=== PATIENT | female | born 1960 | race Caucasian/White ===

== ENCOUNTER 2019-11-11 07:08 | Outpatient (CLI) | payer MEDICARE, SELFPAY ==
--- NOTE | ~2019-11-11 | CT_ITS ---
EXAMINATION: CT chest abdomen pelvis w con EXAM DATE: 11/11/2019 07:42 INDICATION: Left-sided lung cancer. Cough. Weight loss. TECHNIQUE: Spiral CT of the chest, abdomen and pelvis was performed following intravenous injection o f 100 mL Omnipaque 350. There is suboptimal enhancement. Axial, coronal and sagittal images were revi ewed. Coronal maximum intensity pixel images of chest reviewed. The dose-length product (DLP) for t his examination was 1198.30 mGy-cm. The exposure was tailored according to patient size (auto mA exp osure control), and iterative reconstruction (ASIR) was used as additional dose reduction technique. Correlation is made to PET/CT 04/15/2019. FINDINGS: CHEST: Left lower lobe previously biopsied cancer has increased in size, measuring 2.5 x 1.8 cm toda y versus 2.0 x 1.3 cm on prior study. Innumerable faint tree-in-bud or centrilobular distribution alia undglass nodular opacities, could be hypersensitivity pneumonitis or respiratory bronchiolitis inters titial lung disease, given that these are chronic, evidence of this on prior study. Large calcified r ight lower lobe granuloma. There are no pleural or pericardial effusions. Scattered regions of left basilar endobronchial debris. There is no mediastinal, hilar or axillary lymphadenopathy. There i s no pneumothorax. Heart normal in size. There is moderate coronary arterial calcification, arter ial sclerosis. ABDOMEN PELVIS: The liver, spleen, adrenal glands and pancreas are unremarkable. There are cholecyst ectomy clips. There is some contrast within the calyces, no hydronephrosis. The uterus is unremarka ble. The bladder is [id number]. There is no retroperitoneal or pelvic lymphadenopathy. There is moderate scattered arteriosclerotic disease. The appendix is normal. There is small sliding gastroesophageal hiatal hernia. There is expected am ount of colonic stool. No free intraperitoneal gas. There are no osteoblastic or osteolytic lesio ns identified. IMPRESSION: 1. Increase in size of left lower lobe biopsy-proven cancer. 2. Diffuse vague tiny chronic groundglass opacities, appearance most consistent with hypersensitivit y pneumonitis or RB-ILD. 3. No evidence of thoracic or abdominal metastatic disease. 4. Small hiatal hernia. Reviewed, dictated and finalized at location A. [employer] IMPRESSION: 1. Increase in size of left lower lobe biopsy-proven cancer. 2. Diffuse vague tiny chronic groundglass opacities, appearance most consisten t with hypersensitivity pneumonitis or RB-ILD. 3. No evidence of thoracic or abdominal metastatic disease. 4. Small hiatal hernia.
== END 2019-11-11 07:09 | disposition home or self-care (01) ==
LOC: ANHIMG 07:10
PROVIDERS: PCP Family Medicine; Visit Provider Internal Medicine Hematology & Oncology
DX: C34.32 Malignant neoplasm of lower lobe, left bronchus or lung (principal); K44.9 Diaphragmatic hernia without obstruction or gangrene; R91.8 Other nonspecific abnormal finding of lung field
CPT/HCPCS: 71260; 74177; Q9967

== ENCOUNTER 2019-11-27 07:12 | Outpatient (CLI) | payer MEDICARE, SELFPAY ==
--- NOTE | 2019-11-27 | ECHO_ITS ---
Patient Info Name: Nanda Fajardo Age: 59 years : 1960 Gender: Female Ht: 65 in Wt: 184 lbs BSA: 1.98 m2 HR: 54 bpm BP: 107 / 73 mmHg Heart Rhythm: Sinus Rhythm Exam Date: 11/27/2019 8:13 AM Exam Location: [facility] Patient Status: Outpatient Admit Date: 11/27/2019 Staff Ordering Physician: PHYSICIAN NOT ON STAFF, NONSTAFF Combatant Diver Qualified: Alma Navarrete RDCS Attending Provider: PHYSICIAN NOT ON STAFF, NONSTAFF Exam Type: CA echo doppler color flow Study Info Indications - CANCER LOWER LOBE LUNG Complete two-dimensional, color flow and Doppler transthoracic echocardiogram is performed. Summary 1. Left ventricular systolic function is normal, estimated at 65-70%. 2. There is mildly increased left ventricular wall thickness. 3. The left ventricular diastolic function is grade I diastolic dysfunction. 4. There is mild aortic valve stenosis with a peak velocity of 240 cm/s, mean gradient of 10 mmHg, and aortic valve area of 1.6 cm2. 5. Heavy calcification involving the right coronary cusp of the aortic valve. 6. There is trace aortic valve regurgitation. 7. There is mild pulmonic regurgitation. Left Ventricle Left ventricular chamber dimension is normal. Left ventricular systolic function is normal, estimated at 65-70%. There is mildly increased left ventricular wall thickness. Left ventricular septal wall motion is normal. The left ventricular diastolic function is grade I diastolic dysfunction. Right Ventricle Right ventricular chamber dimension is normal. Right ventricular systolic function is normal. Left Atria Left atrial chamber dimension is normal. Right Atria Right atrial chamber dimension is normal. Atrial Septum Intact interatrial septum visualized by color flow imaging. Aortic Valve The aortic valve is trileaflet. There is no aortic valve sclerosis. There is mild aortic valve stenosis with a peak velocity of 240 cm/s, mean gradient of 10 mmHg, and aortic valve area of 1.6 cm2. There is trace aortic valve regurgitation. Heavy calcification involving the right coronary cusp of the aortic valve. Pulmonic Valve The pulmonic valve is not well visualized. There is no pulmonic valve stenosis. There is mild pulmonic regurgitation. Mitral Valve The mitral valve has thickened leaflets. There is no mitral valve stenosis. There is no mitral valve regurgitation. Tricuspid Valve The tricuspid valve leaflets are normal. There is no significant tricuspid valve stenosis. There is no tricuspid valve regurgitation. Pericardium/Pleural The pericardium appears normal. There is no pericardial effusion. Inferior Vena Cava Normal inferior vena cava with >50% collapse upon inspiration consistent with normal right atrial pressure, 5 mmHg. Aorta The aortic root size at the sinus of Valsalva is normal. The prox ascending aorta size is normal. Left Ventricular Outflow Tract Name Value Normal LVOT 2D LVOT Diameter 2.1 cm LVOT Doppler LVOT Peak Gradient 3 mmHg LVOT Mean Gradient 2 mmHg LVOT VTI
--- NOTE | 2019-11-28 11:25 | WPDPFTINT ---
PFT Interpretation PFT Interpretation: This PFT met all criteria for ATS standards and reproducibility FEV/FVC pre bronchodilator 68% of predicted FEV1 62% of predicted or 1.47 liters FVC 68% of predicted or 2.17 liters No bronchodilator challenge was given TLC 98% of predicted or 5.03 liters RV 141% RV/TLC 54% DLCO 55% of predicted or 12.7 liters when adjusted for alveolar volume but not adjusted for hemoglobin Flow volume loops did not appear to show expiratory coving Impression: Moderate airflow obstruction with air trapping and moderately reduced diffusion capacity. This pattern may fit COPD. Clinical correlation is advised.
== END 2019-11-27 07:13 | disposition home or self-care (01) ==
PROVIDERS: PCP Family Medicine
DX: C34.30 Malignant neoplasm of lower lobe, unspecified bronchus or lung (principal); R94.2 Abnormal results of pulmonary function studies; I51.7 Cardiomegaly; I35.0 Nonrheumatic aortic (valve) stenosis; I70.0 Atherosclerosis of aorta; I37.1 Nonrheumatic pulmonary valve insufficiency
CPT/HCPCS: 93306; 94375; 94726; 94729

== ENCOUNTER 2019-12-31 07:46 | Outpatient (CLI) | payer MEDICARE, SELFPAY ==
--- NOTE | ~2019-12-31 | XR_ITS ---
EXAMINATION: XR chest 2V EXAM DATE: 12/31/2019 08:16 INDICATION: Malignant neoplasm of lower lobe. Left-sided lung cancer. TECHNIQUE: Portable AP frontal chest x-ray was obtained. Comparison is made to prior examination from 05/14/2019. FINDINGS: There is small left pleural effusion. Can't identify previously seen left midlung zone mass like opacity, correlate for any interval partial pneumonectomy or other treatment. Right middle lobe calcified granuloma. Cardiomediastinal silhouette is normal. There is no pneumothorax suspected. Ther e are no pleural effusions. There are mild bony degenerative changes. IMPRESSION: 1. Small left pleural effusion. Reviewed, dictated and finalized at location B.
== END 2019-12-31 07:47 | disposition home or self-care (01) ==
PROVIDERS: PCP Family Medicine; Visit Provider Thoracic Surgery (Cardiothoracic Vascular Surgery)
DX: C34.90 Malignant neoplasm of unspecified part of unspecified bronchus or lung (principal); J90 Pleural effusion, not elsewhere classified
CPT/HCPCS: 71046

== ENCOUNTER 2020-01-10 12:47 | Inpatient (IN) | payer MEDICARE, SELFPAY ==
[2020-01-10] VITALS (8 sets, daily range): BP systolic 112–175; BP diastolic 64–107; PULSE 60–107; RESP 18–22; TEMP 36.4–37; O2SAT 93–99; BMI 35.0
--- NOTE | ~2020-01-10 | CT_ITS ---
EXAMINATION: CT abdomen pelvis wo con EXAM DATE: 01/10/2020 13:33 INDICATION: Right flank pain. TECHNIQUE: Spiral CT of the abdomen and pelvis was performed without contrast. Axial, coronal and sag ittal images were reviewed. The dose-length product (DLP) for this examination was 422.72 mGy-cm. T he exposure was tailored according to patient size (auto mA exposure control), and iterative reconstr uction (ASIR) was used as additional dose reduction technique. There is no prior study for compariso n. FINDINGS: There is a 10 mm stone in the right ureteropelvic junction with moderate obstructive nephro tejas. Additional punctate right superior calyceal stone. There is left inferior calyceal stone measu ring 1.8 cm. The uterus is anteverted and morphologically normal. The bladder is collapsed at time of imaging limiting evaluation. The liver, spleen, adrenal glands and pancreas are unremarkable. Th ere are cholecystectomy clips. There is no retroperitoneal or pelvic lymphadenopathy. There is mod erate scattered arteriosclerotic disease. The appendix is normal. The stomach and small bowel are unremarkable. There is expected amount of c olonic stool. No free intraperitoneal gas. There is small left pleural effusion with adjacent sub segmental atelectasis. There is right lower lobe granuloma. There are no osteoblastic or osteolytic lesions identified. IMPRESSION: 1. Right UPJ 1 cm stone, moderate obstructive nephropathy. 2. Bilateral nephrolithiasis. 3. Small left pleural effusion, adjacent subsegmental atelectasis. Reviewed, dictated and finalized at location A.
--- NOTE | ~2020-01-10 | XR_ITS ---
EXAMINATION: XR retrograde pyelo w/stent RT DATE: 01/11/2020 08:57 INDICATION: Obstructing right renal stone with hydronephrosis. TECHNIQUE: 31 fluoroscopic images of the abdomen and pelvis were obtained during procedure performed by Dr. Cordova. Radiologist was not present for the imaging or procedure. The amount of fluoroscopy jen e used during this procedure was 0.4 minutes. COMPARISON: CT dated 01/10/2020 FINDINGS: Escalator Constructor images demonstrate the obstructing proximal right ureteral stone projecting lateral to the L4 v ertebral body. Cholecystectomy clips in right upper quadrant. Subsequent images demonstrate retrograd e injection of contrast into the right ureter which appears to displace the stone with contrast exten ding to the dilated right renal pelvis. Final images demonstrate placement of a right internal ureter al stent with loops formed over the right renal pelvis and bladder. There is residual contrast within the right renal collecting system with improvement in the right hydronephrosis. IMPRESSION: 1. Right ureteral stone, which appears displaced on the final images, unclear whether reflux into the contrast opacified right renal collecting system were extracted. Correlate with procedure note. 2. Right internal ureteral stent placement in expected position with improvement in right hydronephro sis. Reviewed, dictated and finalized at location A. IMPRESSION: 1. Right ureteral stone, which appears displaced on the final images, unclear w hether reflux into the contrast opacified right renal collecting system were ex tracted. Correlate with procedure note. 2. Right internal ureteral stent placement in expected position with improvemen t in right hydronephrosis.
--- NOTE | ~2020-01-10 | XR_ITS ---
EXAMINATION: XR abdomen/kub 1V DATE: 01/12/2020 09:38 INDICATION: Right renal stone TECHNIQUE: A supine view of the abdomen on 2 radiographs was obtained. COMPARISON: CT dated 01/10/2020 FINDINGS: Again seen is a cluster of at least 4 stones in a lower pole calyx of the left kidney, the largest me asuring [address] There is a new right internal ureteral stent with loops formed over the ex pected location of the bladder and right renal pelvis. The previously obstructing 10 mm stone at the proximal right ureter has moved, now projecting over the lower pole of the right kidney. No stones se en along the course of ureters. No dilated gas-filled loops of bowel to suggest obstruction. Cholecys tectomy clips in the right upper quadrant. Multiple splenic calcifications consistent with old granul omatous disease. Small left pleural effusion. Mild bibasilar atelectasis. IMPRESSION: 1. Bilateral nephrolithiasis with repositioning post retrograde Polygram and right internal ureteral stent placement of a 10 mm stone previously obstructing the proximal right ureter which is now positi oned in the lower pole of the right kidney post retrograde pyelogram and right internal ureteral sten t placement. 2. Small left pleural effusion. Reviewed, dictated and finalized at location A. IMPRESSION: 1. Bilateral nephrolithiasis with repositioning post retrograde Polygram and ri ght internal ureteral stent placement of a 10 mm stone previously obstructing t he proximal right ureter which is now positioned in the lower pole of the right kidney post retrograde pyelogram and right internal ureteral stent placement. 2. Small left pleural effusion.
--- NOTE | ~2020-01-10 | XR_ITS ---
EXAMINATION: XR abdomen/kub 1V EXAM DATE: 01/10/2020 13:39 INDICATION: Right UPJ stone. TECHNIQUE: Frontal projection(s) of the abdomen for interpretation. Correlation is made to CT same da te. FINDINGS: Right UPJ stone identified, indicated. Left nephrolithiasis also identified. There are cho lecystectomy clips. There is a nonobstructive bowel gas pattern. There are bony degenerative changes. IMPRESSION: Right UPJ stone identified. Left nephrolithiasis. Reviewed, dictated and finalized at location A.
[2020-01-10 13:06] LABS: Basophils Absolute Auto 0.1 K/mm3 (0.0-0.1); Basophils Percent Auto 0.6 % (0.2-1.2); Eosinophils Absolute Auto 0.3 K/mm3 (0-0.3); Eosinophils Percent Auto 3.8 % (0-4.4); Hematocrit 41.1 % (37.0-47.0); Immature Granulocyte Absolute 0.03 K/mm3 (0.00-0.031); Immature Granulocyte Percent A 0.3 % (0-0.5); Lymphocytes Absolute Auto 1.66 K/mm3 (0.9-3.2); Lymphocytes Percent Auto 18.7 % (18.3-44.2); Mean Corpuscular HGB Conc 31.6 g/dl (32-36); Mean Corpuscular Hemoglobin 28.3 pg (26-34); Mean Corpuscular Volume 89.5 fl (80-100); Mean Platelet Volume 9.8 fl (7.4-10.4); Monocytes Absolute Auto 0.6 K/mm3 (0.1-0.6); Monocytes Percent Auto 6.7 % (2.6-8.5); Neutrophils Absolute Auto 6.2 K/mm3 (1.3-6.7); Neutrophils Percent Auto 69.9 % (45.5-73.1); Platelet Count Result 210 k/mm3 (150-375); Red Blood Count 4.59 M/mm3 (4.2-5.4); Red Cell Distribution Width 13.7 % (11.5-14.5); White Blood Count 8.9 K/mm3 (4.5-10.0)
--- NOTE | 2020-01-10 13:13 | ED.ABDPAIN ---
HPI - Abdominal Pain General Chief Complaint: Abdominal Pain <BRODERICK Paez Last Filed: 01/10/20 14:41> Stated Complaint: abd/back pain <BRODERICK Paez Last Filed: 01/10/20 14:41> Time Seen by Provider: 01/10/20 12:55 <BRODERICK Paez Last Filed: 01/10/20 14:41> Source: patient <BRODERICK Paez Last Filed: 01/10/20 14:41> Mode of arrival: ambulatory <BRODERICK Paez Last Filed: 01/10/20 14:41> Limitations: no limitations <BRODERICK Paez Last Filed: 01/10/20 14:41> History of Present Illness HPI narrative: Patient is a 59-year-old female who presents to emergency department with acute onset of right flank pain from the right CVA region into the abdomen presented this morning with associated nausea and vomiting patient denies similar occurrence notes sharp stabbing pain nothing is made it better or worse denies any diarrhea urinary symptoms. Patient has not taken anything for her symptoms and presents in acute pain distress <BRODERICK Paez Last Filed: 01/10/20 14:41> Related Data Home Medications: Home Medications Medication Instructions Recorded Confirmed aspirin [Aspir-81] 81 mg PO DAILY 01/10/20 bupropion HCl 75 mg PO BID 01/10/20 calcium polycarbophil [FiberCon] 1,250 mg PO BID 01/10/20 ergocalciferol (vitamin D2) 1,250 mcg PO WEEKLY 01/10/20 [Vitamin D2] flaxseed oil 1,000 mg PO DAILY 01/10/20 fluoxetine 20 mg PO DAILY 01/10/20 gabapentin 300 mg PO BID 01/10/20 hydrocodone-acetaminophen 1 tablet PO Q8H 01/10/20 lisinopril 5 mg PO DAILY 01/10/20 loratadine 10 mg PO DAILY 01/10/20 metformin 500 mg PO DAILY 01/10/20 erzauirldsfk-yaz-wmdy-FA-vit K 1 tablet PO DAILY 01/10/20 [Adults Multivitamin] potassium chloride 20 meq PO DAILY 01/10/20 pravastatin 40 mg PO DAILY 01/10/20 ropinirole [Requip XL] 2 mg PO DAILY 01/10/20 umeclidinium-vilanterol [Anoro 1 inh INHALATION DAILY 01/10/20 Ellipta] <Richard Carlton PA-C - Last Filed: 01/10/20 14:41> Allergies/Adverse Reactions: Allergies Allergy/AdvReac Type Severity Reaction Status Date / Time nickel Allergy Unknown Rash Verified 01/10/20 12:53 <Richard Carlton PA-C - Last Filed: 01/10/20 14:41> Review of Systems Review of Systems: All systems reviewed & are unremarkable except as noted in HPI and below <Richard Carlton PA-C - Last Filed: 01/10/20 14:41> [facility] Past Medical History Medical History: Medical History (Updated 01/10/20 @ 14:57 by Grace Estes PA-C) COPD (chronic obstructive pulmonary disease) Depression with anxiety GERD (gastroesophageal reflux disease) Hyperlipidemia Hypertension Obstructive sleep apnea Intolerant to CPAP. Perforated gastric ulcer With intra-abdominal abscess in January 2018, status post and crest ectomy with Billroth-I gastroduodenostomy. Primary adenocarcinoma of lower lobe of left lung Restless leg syndrome Type 2 diabetes mellitus with peripheral neuropathy Vitamin D deficiency <Richard Carlton PA-C - Last Filed: 01/10/20 14:41> Surgical History Surgical History: Surgical History (Updated 01/10/20 @ 14:51 by Grace Estes PA-C) History of Billroth I operation Ghassan gastrectomy with Billroth 1 gastroduodenostomy for large perforated ulcer in the posterior greater curvature on February 19, 2018, per Dr. Jose Ramon June with subsequent closure of abdominal wound dehiscence February 27, 2018. History of laparoscopic cholecystectomy History of lobectomy of lung History of tonsillectomy History of tubal ligation <Richard Carlton PA-C - Last Filed: 01/10/20 14:41> Family History Family History: Family History Mother Patient's mother is , Onset Age: 71 Father Patient's father is , Onset Age: 52 Other Diabetes mellitus Family history of arthritis Hypertensio
[2020-01-10] MEDS: FAMOTIDINE 20 MG/2 ML VIAL IV PUSH (13:14)
[2020-01-10] MEDS: ONDANSETRON INJ 4 MG/2 ML VIAL IV PUSH (13:14)
[2020-01-10] MEDS: SODIUM CHLORIDE 0.9% IV 1,000 ML 999 ML IV CONT (13:15)
[2020-01-10 13:18] LABS: Alanine Aminotransferase 14 U/L (4-35); Albumin Level 4.2 g/dL (3.5-5.1); Alkaline Phosphatase 101 U/L (38-126); Aspartate Amino Transferase 25 U/L (14-36); Bilirubin,Total 0.4 mg/dL (0.2-1.3); Blood Urea Nitrogen 13 mg/dL (7-17); Calcium 9.5 mg/dL (8.4-10.2); Carbon Dioxide 34 mmol/L (22-30); Chloride 100 mmol/L (98-107); Estimated Glomerular Filt Rate > 60; Glucose 163 mg/dL (65-105); Lipase 43 U/L (23-300); Potassium 4.2 mmol/L (3.4-5.0); Sodium 137 mmol/L (137-145)
[2020-01-10] MEDS: MORPHINE SULFATE 4 MG/ML INJ IV PUSH (13:24)
[2020-01-10 13:57] LABS: Add Urine Microscopic? YES; Appearance Urine Cloudy (Clear); Bacteria Urine Trace /hpf; Bilirubin Urine Negative (Negative); Blood Urine 2+ (Negative); Color Urine Yellow (Yellow); Glucose Urine UA Negative (Negative); Ketones Urine Negative (Negative); Leukocyte Esterase Ur 3+ LEU/UL (Negative); Mucus Urine Rare /lpf; Nitrate Urine Positive (Negative); Protein Urine 2+ mg/dL (Negative); RBC Urine 51-75 /hpf (0-2); Specific Grav Ur 1.015 (1.001-1.035); Squamous Epithelial Cell Urine Few /hpf (Few); WBC Urine >75 /hpf
--- NOTE | 2020-01-10 14:31 | PC.NURSE ---
Spoke with [facility] patients contact finger assembler at [phone] and notified that patient will be admitted to hospital. Also notified [place] patient requesting her to picking tech her purse/wallet.
--- NOTE | 2020-01-10 15:21 | PC.NURSE ---
This patient, Nanda Fajardo, was admitted to Medical Room 257-01. Patient/family oriented to hospital policies and general routines including ID bracelet, bed and alarms, visiting hours, pain management, procedures, bathroom and other care routines, personal items, smoking policy, room service/diet, and visiting hours. Valuables list has been completed. Information on how to activate the Rapid Response Team has been discussed. Patient/Family are encouraged to report perceived risks to care and to ask questions if they do not understand what they are told or what they should do.
[2020-01-10] MEDS: LACTATED RINGERS 1,000 ML 125 ML IV CONT (15:37)
[2020-01-10 16:14] LABS: Glucose Point of Care 128 (65-105)
--- NOTE | 2020-01-10 16:30 | PM.IMHP ---
H&P: HPI History of Present Illness Chief complaint: Abdominal pain. Narrative: Nanda Fajardo is a 59-year-old female with adenocarcinoma of the lung status post partial left lower lobectomy, type 2 diabetes mellitus with peripheral neuropathy, hypertension, COPD and GERD who presented to the emergency department earlier this afternoon from home for evaluation of abdominal pain. She notes a sudden onset of right flank pain this morning, radiating to the right mid back and right middle and lower quadrants. She describes colicky pain, intermittently sharp and stabbing in nature, without significant alleviating or aggravating factors. Associated symptoms include nausea and vomiting. She has never had similar symptoms in the past. CT of the abdomen and pelvis demonstrated bilateral nephrolithiasis as well as a 1 centimeter right UPJ stone with moderate obstructive nephropathy. With further questioning, she denies knowledge of prior kidney stones. She also denies hematuria, dysuria, urinary hesitancy, and urgency. She is frequently cold, and that is unchanged. No fever or sweats. Review of Systems Review of Systems: Narrative: Twelve systems were reviewed with pertinent positives and negatives as per HPI. She has lost about 35 pounds since being diagnosed with lung cancer last year. Since that time, she feels as though she is cold a majority of the time in fact complains of being quite cold at the time my evaluation despite being in a comfortable room temperature. No fever or sweats. She has an occasional cough, which is chronic and unchanged. No recent travel. Denies sick contacts. No exposure to those positive for COVID-19. She has not had nausea or vomiting since admission to the hospital. She believes her diabetes is well controlled. She has mild peripheral neuropathy. No retinopathy or nephropathy. Denies blurry vision, polydipsia, and polyuria. Except as documented, all other systems were reviewed and are negative. [facility] Past Medical History Medical History (Updated 01/10/20 @ 20:42 by Grace Estes PA-C) COPD (chronic obstructive pulmonary disease) Depression with anxiety Diastolic dysfunction Echocardiogram November 27, 2019 showed normal left ventricular systolic size and function with an ejection fraction of 65 to 70%, mild increase in left ventricular wall thickness, left ventricular diastolic dysfunction grade 1, and mild aortic valve stenosis with a valve area of 1.6 centimeters squared. GERD (gastroesophageal reflux disease) Hyperlipidemia Hypertension Obstructive sleep apnea Intolerant to CPAP. Perforated gastric ulcer With intra-abdominal abscess in January 2018, status post hemigastrectomy with Billroth-I gastroduodenostomy. Primary adenocarcinoma of lower lobe of left lung Status partial left lower lobectomy November 2019 at [facility] in [place]. She is to start chemotherapy per Dr. Rodriguez in the near future. Restless leg syndrome Type 2 diabetes mellitus with peripheral neuropathy Hemoglobin A1c was 6.1% in January 2019. Vitamin D deficiency Surgical History Surgical History (Updated 01/10/20 @ 20:39 by Grace Estes PA-C) History of Billroth I operation Ghassan gastrectomy with Billroth 1 gastroduodenostomy for large perforated ulcer in the posterior greater curvature on February 19, 2018, per Dr. Jose Ramon June with subsequent closure of abdominal wound dehiscence February 27, 2018. History of laparoscopic cholecystectomy History of tonsillectomy History of tubal ligation Status post partial lobectomy of lung Robotic assisted left lower lobe, done at [facility] in [place] in November 2019. Family History Family History Mother Patient's mother is , Onset Age: 71 History of blood clots Congestive heart failure Diabetes mellitus Hypertension Father Patient's father is , Onset Age: 52 Acute myocardial infa
[2020-01-10 18:46] LABS: Glucose Point of Care 147 (65-105)
[2020-01-10] MEDS: FLUOXETINE HCL 20 MG CAP PO (21:50)
[2020-01-10] MEDS: PRAVASTATIN SODIUM 20 MG TABLET 40 MG PO (21:50)
[2020-01-10] MEDS: GABAPENTIN 300 MG CAPSULE 600 MG PO (21:51)
[2020-01-10] MEDS: POTASSIUM CHLORIDE 20 MEQ TABLET.ER PO (21:51)
[2020-01-10] MEDS: lisinopriL 5 MG TABLET PO (21:51)
[2020-01-10] MEDS: buPROPion HCL 75 MG TABLET PO (21:51)
[2020-01-10 21:58] LABS: Glucose Point of Care 182 (65-105)
[2020-01-11] VITALS (13 sets, daily range): BP systolic 78–122; BP diastolic 40–74; PULSE 69–92; RESP 16–26; TEMP 36.9–37.8; O2SAT 90–100
[2020-01-11] MEDS: LACTATED RINGERS 1,000 ML 125 ML IV CONT (02:14)
[2020-01-11 05:06] LABS: Basophils Percent Auto 0.3 % (0.2-1.2); Eosinophils Percent Auto 0.1 % (0-4.4); Hematocrit 35.8 % (37.0-47.0); Hemoglobin 11.6 g/dL (12.0-15.0); Immature Granulocyte Absolute 0.06 K/mm3 (0.00-0.031); Immature Granulocyte Percent A 0.5 % (0-0.5); Lymphocytes Absolute Auto 1.28 K/mm3 (0.9-3.2); Lymphocytes Percent Auto 9.8 % (18.3-44.2); Mean Corpuscular HGB Conc 32.4 g/dl (32-36); Mean Corpuscular Hemoglobin 28.4 pg (26-34); Mean Corpuscular Volume 87.5 fl (80-100); Mean Platelet Volume 9.3 fl (7.4-10.4); Monocytes Absolute Auto 1.2 K/mm3 (0.1-0.6); Monocytes Percent Auto 8.8 % (2.6-8.5); Neutrophils Absolute Auto 10.5 K/mm3 (1.3-6.7); Neutrophils Percent Auto 80.5 % (45.5-73.1); Platelet Count Result 174 k/mm3 (150-375); Red Blood Count 4.09 M/mm3 (4.2-5.4); Red Cell Distribution Width 14.1 % (11.5-14.5)
[2020-01-11 05:25] LABS: Blood Urea Nitrogen 14 mg/dL (7-17); Calcium 8.5 mg/dL (8.4-10.2); Carbon Dioxide 31 mmol/L (22-30); Chloride 100 mmol/L (98-107); Estimated CRCL calculation 68 ml/min; Estimated Glomerular Filt Rate > 60; Glucose 133 mg/dL (65-105); Potassium 4.4 mmol/L (3.4-5.0); Sodium 135 mmol/L (137-145)
[2020-01-11 05:42] LABS: Hemoglobin A1C 5.7 % (<5.7)
[2020-01-11 07:48] LABS: Glucose Point of Care 140 (65-105)
--- NOTE | 2020-01-11 08:09 | WPDANESEPPF ---
Anes - Initial Pre Proc Eval Procedure: Operation Date: 01/11/20 07:50 Proposed Procedures p Cysto, RPG, Stone Ext, Stent Placement(Right) - Jerrod Cordova MD Date/Time: 01/11/20 08:09 Surgeon: Xochilt Lee PA-C Pre Op Diagnosis: Abdominal pain. Patient Data Age: 59 Gender: F Height: 5 ft 5 in Weight: 95.6 kg Last Vital Signs Temp 37.1 C 01/11/20 06:00 Pulse 82 01/11/20 06:00 Resp 20 01/11/20 06:00 BP 100/56 L 01/11/20 06:00 Pulse Ox 90 01/11/20 06:00 Allergies Allergy/AdvReac Type Severity Reaction Status Date / Time nickel Allergy Unknown Rash Verified 01/10/20 12:53 Home Medications Medication Instructions Recorded Confirmed Type aspirin [Aspir-81] 81 mg PO BID 01/10/20 01/10/20 History bupropion HCl 75 mg PO BID 01/10/20 01/10/20 History calcium polycarbophil [FiberCon] 1,250 mg PO BID 01/10/20 01/10/20 History ergocalciferol (vitamin D2) 1,250 mcg PO WEEKLY 01/10/20 01/10/20 History [Vitamin D2] flaxseed oil 1,000 mg PO DAILY 01/10/20 01/10/20 History fluoxetine 20 mg PO DAILY 01/10/20 01/10/20 History gabapentin 300 mg PO BID 01/10/20 01/10/20 History hydrocodone-acetaminophen 1 tablet PO Q8H 01/10/20 01/10/20 History lisinopril 5 mg PO DAILY 01/10/20 01/10/20 History loratadine 10 mg PO DAILY 01/10/20 01/10/20 History metformin 500 mg PO DAILY 01/10/20 01/10/20 History [id number]-dgz-oqcc-FA-vit K 1 tablet PO DAILY 01/10/20 01/10/20 History [Adults Multivitamin] potassium chloride 20 meq PO DAILY 01/10/20 01/10/20 History pravastatin 40 mg PO HS 01/10/20 01/10/20 History ropinirole [Requip XL] 4 mg PO HS 01/10/20 01/10/20 History umeclidinium-vilanterol [Anoro 1 inh INHALATION DAILY 01/10/20 01/10/20 History Ellipta] Laboratory Tests 01/10/20 01/10/20 01/10/20 12:58 12:58 13:41 WBC 8.9 K/mm3 K/mm3 (4.5-10.0) RBC 4.59 M/mm3 M/mm3 (4.2-5.4) Hgb 13.0 g/dL g/dL (12.0-15.0) Hct 41.1 % % (37.0-47.0) MCV 89.5 fl fl (80-100) MCH 28.3 pg pg (26-34) MCHC 31.6 g/dl L g/dl (32-36) RDW 13.7 % % (11.5-14.5) Plt Count 210 k/mm3 k/mm3 (150-375) MPV 9.8 fl fl (7.4-10.4) Immature Gran % (Auto) 0.3 % % (0-0.5) Neut % (Auto) 69.9 % % (45.5-73.1) Lymph % (Auto) 18.7 % % (18.3-44.2) [place] % (Auto) 6.7 % % (2.6-8.5) Eos % (Auto) 3.8 % % (0-4.4) Baso % (Auto) 0.6 % % (0.2-1.2) Lymph # (Auto) 1.66 K/mm3 K/mm3 (0.9-3.2) [place] # (Auto) 0.6 K/mm3 K/mm3 (0.1-0.6) Eos # (Auto) 0.3 K/mm3 K/mm3 (0-0.3) Baso # (Auto) 0.1 K/mm3 K/mm3 (0.0-0.1) Abs Immat Gran (auto) 0.03 K/mm3 K/mm3 (0.00-0.031) Absolute Neuts (auto) 6.2 K/mm3 K/mm3 (1.3-6.7) Absolute Nucleated RBC 0.0 K/mm3 K/mm3 (0.0-0.012) Nucleated RBC % 0.0 % % (0.0-0.2) Sodium 137 mmol/L mmol/L (137-145) Potassium 4.2 mmol/L mmol/L (3.4-5.0) Chloride 100 mmol/L mmol/L (98-107) Carbon Dioxide 34 mmol/L H mmol/L (22-30) BUN 13 mg/dL mg/dL (7-17) Creatinine 0.70 mg/dL mg/dL (0.7-1.0) Estim Creat Clear Calc Not Reportable Estimated GFR > 60 (59 - ) Glucose 163 mg/dL H mg/dL (65-105) POC Capillary Glucose Hemoglobin A1c Calcium 9.5 mg/dL mg/dL (8.4-10.2) Total Bilirubin 0.4 mg/dL mg/dL (0.2-1.3) AST 25 U/L U/L (14-36) ALT 14 U/L U/L (4-35) Alkaline Phosphatase 101 U/L U/L (38-126) Total Protein 7.0 g/dL g/dL (6.3-8.2) Albumin 4.2 g/dL g/dL (3.5-5.1) Lipase 43 U/L U/L (23-300) Urine Color Yellow (Yellow) Urine Appearance Cloudy H (Clear) Urine pH 7.0 (5.0-9.0) Ur Specific [place] 1.0
[2020-01-11] MEDS: LACTATED RINGERS 1,000 ML 30 ML IV CONT ×2 (08:15→09:25)
--- NOTE | 2020-01-11 08:20 | PC.NURSE ---
To OR per bed, IV saline locked.
--- NOTE | 2020-01-11 08:33 | WPDURCON ---
Assessment and Plan Assessment and plan (1) COPD (chronic obstructive pulmonary disease): Code(s): J44.9 - Chronic obstructive pulmonary disease, unspecified Status: Acute (2) Pyuria: Code(s): R82.81 - Pyuria Status: Acute (3) Bilateral nephrolithiasis: Code(s): N20.0 - Calculus of kidney Status: Acute (4) Obstruction of right ureteropelvic junction due to stone: Code(s): N20.1 - Calculus of ureter Status: Acute Additional Plan NPO Patient will undergo right stent placement to alleviate obstruction Will need definite treatment in the near future Risks and complications discussed. She agrees with the plan Urology Consult Note HPI Date Seen: 01/11/20 Requesting Physician: Xochilt Lee PA-C Primary Care Provider: Lorrie Allen, Consult Narrative Narrative: Nanda Fajardo is a 59 year old female with right flank pain for the past [address] in ER noted a 1cm right UPJ with hydro. CT noted a left kidney stone 2cm no hydro. This is his her 1st stone episode. Review of Systems Review of Systems: All systems reviewed & are unremarkable except as noted in HPI and below (right flank pain, denies hematuria or fever) PMFSH Past Medical History Medical History COPD (chronic obstructive pulmonary disease) Depression with anxiety Diastolic dysfunction Echocardiogram November 27, 2019 showed normal left ventricular systolic size and function with an ejection fraction of 65 to 70%, mild increase in left ventricular wall thickness, left ventricular diastolic dysfunction grade 1, and mild aortic valve stenosis with a valve area of 1.6 centimeters squared. GERD (gastroesophageal reflux disease) Hyperlipidemia Hypertension Obstructive sleep apnea Intolerant to CPAP. Perforated gastric ulcer With intra-abdominal abscess in January 2018, status post hemigastrectomy with Billroth-I gastroduodenostomy. Primary adenocarcinoma of lower lobe of left lung Status partial left lower lobectomy November 2019 at [facility] in [place]. She is to start chemotherapy per Dr. Rodriguez in the near future. Restless leg syndrome Type 2 diabetes mellitus with peripheral neuropathy Hemoglobin A1c was 6.1% in January 2019. Vitamin D deficiency Surgical History Surgical History History of Billroth I operation Ghassan gastrectomy with Billroth 1 gastroduodenostomy for large perforated ulcer in the posterior greater curvature on February 19, 2018, per Dr. Jose Ramon June with subsequent closure of abdominal wound dehiscence February 27, 2018. History of laparoscopic cholecystectomy History of tonsillectomy History of tubal ligation Status post partial lobectomy of lung Robotic assisted left lower lobe, done at [facility] in [place] in November 2019. Family History Family History Mother Patient's mother is , Onset Age: 71 History of blood clots Congestive heart failure Diabetes mellitus Hypertension Father Patient's father is , Onset Age: 52 Acute myocardial infarction Sibling History of blood clots Cerebrovascular accident Chronic obstructive pulmonary disease Diabetes mellitus Hypertension Sibling Chronic obstructive pulmonary disease Diabetes mellitus Other Family history of arthritis Social History Social History Social History: The patient lives in [place] with her . He is nearly 80 years old and suffers from dementia. She designates her daughter, Marysol Reynoso, as her surrogate decision maker and she wishes to be a full code. She is on disability. She smoked up to 2 packs of cigarettes per day for at least 50 years and quit December 04, 2019 at 17:00. No alcohol or drug abuse. Smoking packs per
--- NOTE | 2020-01-11 09:02 | PM.OP ---
Procedure Note - Brief Procedure Note - Brief Date of procedure: 01/11/20 Pre-op diagnosis: Abdominal pain. Surgeon: Osmani Cordova MD Preop Right kidney stone Post op Right proximal ureter stone Procedure: Right retrograde pyelogram, right stent placement Surgeon: Tasha Findings: 1cm right upj stone Complications: None Disposition:STable to PACU
[2020-01-11 09:10] LABS: Glucose Point of Care 111 (65-105)
--- NOTE | 2020-01-11 09:38 | SUR.PHASEI ---
0902- PT ADMITTED TO PACU. BLOOD PRESSURE 78/43. TOOL PROCUREMENT COORDINATOR BEDSIDE STATED THAT BP WAS LOW AT BEGINNING OF CASE. DR. ODELL BEDSIDE, HE STATED TO PLACE FLUID IN A PRESSURE BAG AND FINISH BAG IN PACU AND START ANOTHER. VSS. 0932- PT AWAKE. BP 87/52. FLUIDS RUNNING. PT TAKEN OFF FACE MASK AND PLACED ON 3 L NC. RESTING IN BED
--- NOTE | 2020-01-11 10:01 | OP_ITS ---
DATE OF PROCEDURE: 01/11/2020 PREOPERATIVE DIAGNOSIS: Right proximal ureter stone with hydronephrosis and flank pain. POSTOPERATIVE DIAGNOSIS: Right proximal ureter stone with hydronephrosis and flank pain. PROCEDURE PERFORMED: Cystoscopy, right retrograde pyelogram, right stent placement. SURGEON: Osmani Cordova M.D. ANESTHESIA: LMA. ESTIMATED BLOOD LOSS: None. INDICATIONS FOR PROCEDURE: The patient is a 59-year-old female who developed persistent right flank pain over the past [address] scan noted a 1 cm stone causing hydronephrosis. We have elected to proceed with hopefully pushing the stone back into the kidney and alleviate the obstruction by a stent placement. DESCRIPTION OF PROCEDURE: A time-out was performed and consent was obtained. She was already on antibiotics. She was brought to the operating room, placed in dorsal lithotomy position. She was prepped and draped in a sterile fashion. A 22-Scottish cystoscope was then inserted. The urethra was visually normal except there was evidence of a cystocele. Upon entering the bladder, the bladder was thoroughly inspected. There was no evidence of tumor, stones, or carcinoma in situ. The right ureteral orifice was identified and cannulated with a 5-Scottish angiographic. Retrograde pyelogram was performed revealing proximal ureteral stone filling defect. At that point, a 6-Scottish variable stent was inserted over the wire with a good coil in the renal pelvis verified on fluoroscopy as well as the bladder. Bladder contents post stent drainage appeared to still be normal in color. No evidence of pus coming from the stent. Therefore, it was elected to not place a Ramey catheter. At that point, the bladder contents were evacuated. Scope was removed. The patient tolerated the procedure well. There were no complications. DISPOSITION: Stable en route to the PACU. D I MT: Bette
--- NOTE | 2020-01-11 10:25 | PC.NURSE ---
Returned from OR per bed with IV saline locked and on 2 liters oxygen per nasal cannula.
[2020-01-11] MEDS: LORATADINE 10 MG TABLET PO (10:32)
[2020-01-11] MEDS: GABAPENTIN 300 MG CAPSULE PO (10:32)
[2020-01-11] MEDS: ERGOCALCIFEROL 50,000 UNIT CAPSULE 50000 UNITS PO (10:32)
[2020-01-11] MEDS: buPROPion HCL 75 MG TABLET 150 MG PO (10:33)
[2020-01-11] MEDS: MULTIVITAMINS /C LUTEIN (CENTRUM SILVER) TABLET *BKC 1 TAB PO (10:59)
[2020-01-11] MEDS: calcium polycarbophiL 625 MG TABLET 1250 MG PO ×2 (10:59→18:17)
--- NOTE | 2020-01-11 12:56 | PC.NURSE ---
Call to pharmacist to send 0900 prozac, lisinopril, and potassium chloride to floor for administration.
[2020-01-11] MEDS: LACTATED RINGERS 1,000 ML 95 ML IV CONT (13:09)
[2020-01-11] MEDS: FLUOXETINE HCL 20 MG CAP PO (13:27)
--- NOTE | 2020-01-11 14:10 | P.PNIM_ITS ---
Progress Note: A&P Assessment and Plan (1) Obstruction of right ureteropelvic junction due to stone: Code(s): N20.1 - Calculus of ureter Status: Acute Assessment and Plan: * Urology consulted and this morning she underwent a cystoscopy, right retrograde pyelogram along with stent placement * The patient's pain is under control at this time. * Will continue monitoring overnight, pain control, nausea medications. * She is being treated for UTI with IV antibiotics. * Will see what urology says in the morning about plans for discharge and follow-up. (2) Bilateral nephrolithiasis: Code(s): N20.0 - Calculus of kidney Status: Acute Assessment and Plan: * Ramey catheter was not placed after the procedure. * Management by urology. (3) Pyuria: Code(s): R82.81 - Pyuria Status: Acute Assessment and Plan: * Empiric antibiotics in case this is an infected stone. * She was started on IV ceftriaxone. * She denies any urinary symptoms at this time. * Urine culture pending. (4) Type 2 diabetes mellitus with peripheral neuropathy: Code(s): E11.42 - Type 2 diabetes mellitus with diabetic polyneuropathy Status: Acute Assessment and Plan: * The patient denies being on any metformin for years. * Her hemoglobin A1c was 5.7%. * I discontinued her insulin sliding scale, Accu-Cheks and change her diet to regular. (5) Primary adenocarcinoma of lower lobe of left lung: Code(s): C34.32 - Malignant neoplasm of lower lobe, left bronchus or lung Status: Acute Assessment and Plan: * Status post resection. * Plans to begin chemotherapy per Dr. Rodriguez in the near future. * She has an appointment with Dr. Rodriguez tomorrow at 1:30 p.m. and we will try and make sure she attends this visit if possible. (6) Hypertension: Code(s): I10 - Essential (primary) hypertension Status: Acute Assessment and Plan: * Initial reading on arrival to the emergency department was 175/107, likely due to pain. * Most recent reading was 122/74. * Continue antihypertensives and monitor daily. (7) COPD (chronic obstructive pulmonary disease): Code(s): J44.9 - Chronic obstructive pulmonary disease, unspecified Status: Acute Assessment and Plan: * No acute issues. * Continue maintenance inhalers. Time Spent With Patient Time with patient: 25 - 35 minutes Subjective Date/time seen: 01/11/20 14:10 Interval history: Date of service 01/11/2020: Patient reports feeling better after her procedure this morning. She denies any pain at this time but she recently received her pain medications. She is eating and drinking without any issues at this time. She denies any fevers, chills, nausea, vomiting, abdominal pain, shortness of breath, cough, chest pain, dysuria, frequent urination, leg swelling, calf pain or any other symptoms at this time. Review of Systems Review of Systems: All systems reviewed & are unremarkable except as noted in HPI and below Exam Narrative: Exam Narrative: General: 59-year-old woman sitting up in bed eating lunch. Appears comfortable. In no acute distres
--- NOTE | 2020-01-11 14:10 | PM.IMPN ---
Progress Note: A&P Assessment and Plan (1) Obstruction of right ureteropelvic junction due to stone: Code(s): N20.1 - Calculus of ureter Status: Acute Assessment and Plan: Urology consulted and this morning she underwent a cystoscopy, right retrograde pyelogram along with stent placement The patient's pain is under control at this time. Will continue monitoring overnight, pain control, nausea medications. She is being treated for UTI with IV antibiotics. Will see what urology says in the morning about plans for discharge and follow-up. (2) Bilateral nephrolithiasis: Code(s): N20.0 - Calculus of kidney Status: Acute Assessment and Plan: Ramey catheter was not placed after the procedure. Management by urology. (3) Pyuria: Code(s): R82.81 - Pyuria Status: Acute Assessment and Plan: Empiric antibiotics in case this is an infected stone. She was started on IV ceftriaxone. She denies any urinary symptoms at this time. Urine culture pending. (4) Type 2 diabetes mellitus with peripheral neuropathy: Code(s): E11.42 - Type 2 diabetes mellitus with diabetic polyneuropathy Status: Acute Assessment and Plan: The patient denies being on any metformin for years. Her hemoglobin A1c was 5.7%. I discontinued her insulin sliding scale, Accu-Cheks and change her diet to regular. (5) Primary adenocarcinoma of lower lobe of left lung: Code(s): C34.32 - Malignant neoplasm of lower lobe, left bronchus or lung Status: Acute Assessment and Plan: Status post resection. Plans to begin chemotherapy per Dr. Rodriguez in the near future. She has an appointment with Dr. Rodriguez tomorrow at 1:30 p.m. and we will try and make sure she attends this visit if possible. (6) Hypertension: Code(s): I10 - Essential (primary) hypertension Status: Acute Assessment and Plan: Initial reading on arrival to the emergency department was 175/107, likely due to pain. Most recent reading was 122/74. Continue antihypertensives and monitor daily. (7) COPD (chronic obstructive pulmonary disease): Code(s): J44.9 - Chronic obstructive pulmonary disease, unspecified Status: Acute Assessment and Plan: No acute issues. Continue maintenance inhalers. Time Spent With Patient Time with patient: 25 - 35 minutes Subjective Date/time seen: 01/11/20 14:10 Interval history: Date of service 01/11/2020: Patient reports feeling better after her procedure this morning. She denies any pain at this time but she recently received her pain medications. She is eating and drinking without any issues at this time. She denies any fevers, chills, nausea, vomiting, abdominal pain, shortness of breath, cough, chest pain, dysuria, frequent urination, leg swelling, calf pain or any other symptoms at this time. Review of Systems Review of Systems: All systems reviewed & are unremarkable except as noted in HPI and below Exam Narrative: Exam Narrative: General: 59-year-old woman sitting up in bed eating lunch. Appears comfortable. In no acute distress. Skin: No jaundice or cyanosis. Good skin turgor. Neck: Full range of motion. Supple. Respiratory: Lungs are clear to auscultation bilaterally. No wheezing rales or rhonchi. No bony chest wall tenderness. Cardiovascular: The heart has a regular rate and rhythm without murmur. Lower extremities: No lower extremity edema. Distal pulses are easily palpated. No calf tenderness to palpation. Gastrointestinal: Slight tenderness to palpation of epigastric area
[2020-01-11] MEDS: PRAVASTATIN SODIUM 20 MG TABLET 40 MG PO (21:38)
[2020-01-11] MEDS: POTASSIUM CHLORIDE 20 MEQ TABLET.ER PO (21:38)
[2020-01-11] MEDS: GABAPENTIN 300 MG CAPSULE 600 MG PO (21:39)
[2020-01-11] MEDS: buPROPion HCL 75 MG TABLET PO (21:39)
[2020-01-12] MEDS: LACTATED RINGERS 1,000 ML 95 ML IV CONT ×2 (00:25→10:34)
[2020-01-12 05:22] LABS: Basophils Percent Auto 0.2 % (0.2-1.2); Eosinophils Absolute Auto 0.1 K/mm3 (0-0.3); Eosinophils Percent Auto 1.4 % (0-4.4); Hematocrit 32.5 % (37.0-47.0); Hemoglobin 10.3 g/dL (12.0-15.0); Immature Granulocyte Absolute 0.03 K/mm3 (0.00-0.031); Immature Granulocyte Percent A 0.3 % (0-0.5); Lymphocytes Percent Auto 16.2 % (18.3-44.2); Mean Corpuscular HGB Conc 31.7 g/dl (32-36); Mean Corpuscular Hemoglobin 28.7 pg (26-34); Mean Corpuscular Volume 90.5 fl (80-100); Mean Platelet Volume 10.4 fl (7.4-10.4); Monocytes Absolute Auto 0.8 K/mm3 (0.1-0.6); Monocytes Percent Auto 9.6 % (2.6-8.5); Neutrophils Absolute Auto 6.2 K/mm3 (1.3-6.7); Neutrophils Percent Auto 72.3 % (45.5-73.1); Platelet Count Result 148 k/mm3 (150-375); Red Blood Count 3.59 M/mm3 (4.2-5.4); Red Cell Distribution Width 14.3 % (11.5-14.5); White Blood Count 8.6 K/mm3 (4.5-10.0)
[2020-01-12 05:23] LABS: Blood Urea Nitrogen 10 mg/dL (7-17); Calcium 8.4 mg/dL (8.4-10.2); Carbon Dioxide 32 mmol/L (22-30); Chloride 102 mmol/L (98-107); Estimated CRCL calculation 85 ml/min; Estimated Glomerular Filt Rate > 60; Glucose 125 mg/dL (65-105); Potassium 3.5 mmol/L (3.4-5.0); Sodium 138 mmol/L (137-145)
[2020-01-12 05:54] VITALS: BP 105/58; PULSE 69; RESP 18; TEMP 36.9; O2SAT 98
[2020-01-12] MEDS: GABAPENTIN 300 MG CAPSULE PO (08:24)
[2020-01-12] MEDS: FLUOXETINE HCL 20 MG CAP PO (08:24)
[2020-01-12] MEDS: buPROPion HCL 75 MG TABLET 150 MG PO (08:24)
[2020-01-12] MEDS: MULTIVITAMINS /C LUTEIN (CENTRUM SILVER) TABLET *BKC 1 TAB PO (08:24)
[2020-01-12] MEDS: LORATADINE 10 MG TABLET PO (08:24)
[2020-01-12] MEDS: calcium polycarbophiL 625 MG TABLET 1250 MG PO (08:24)
--- NOTE | 2020-01-12 09:40 | WPDUROPN2 ---
Progress Note: A&P Assessment and Plan (1) Obstruction of right ureteropelvic junction due to stone: Code(s): N20.1 - Calculus of ureter Status: Acute Assessment and Plan: Stent placed. Will need outpatient lithotripsy. Will get KUB today to assure that stone is visible. (2) Bilateral nephrolithiasis: Code(s): N20.0 - Calculus of kidney Status: Acute Assessment and Plan: Will also need treatment of a large contralateral kidney stone at some point. (3) Urinary tract infection: Code(s): N39.0 - Urinary tract infection, site not specified Status: Acute Assessment and Plan: Home on culture specific antibiotics once afebrile. Subjective Subjective Date/Time Seen: 01/12/20 09:40 Tolerating stent well. No complaints. Low-grade temperature noted. Objective Data Vital Signs Vital Signs: Vital Signs - 24 hr 01/11/20 09:50 01/11/20 10:00 01/11/20 10:05 Temperature 99.2 F 100.1 F H Pulse Rate 80 74 87 Respiratory Rate 22 H 16 26 H Blood Pressure 94/56 L 122/74 96/57 L Pulse Oximetry 97 98 94 01/11/20 10:39 01/11/20 10:58 01/11/20 14:00 Temperature 99.3 F 98.4 F Pulse Rate 72 Respiratory Rate 16 Blood Pressure 98/68 L Pulse Oximetry 96 94 98 01/11/20 18:37 01/11/20 22:00 01/12/20 05:54 Temperature 98.8 F 98.5 F Pulse Rate 69 69 Respiratory Rate 18 18 Blood Pressure 96/58 L 106/52 L 105/58 L Pulse Oximetry 95 98 Intake/Output Intake/Output: Intake & Output 01/09/20 01/10/20 01/11/20 01/12/20 23:59 23:59 23:59 23:59 Intake Total 1778 4827 1800 Output Total 1250 1200 Balance 1778 3927 600 Meds/Results Medications: Active Medications Generic Name Dose Route Start Last Admin Trade Name Freq PRN Reason Stop Dose Admin Hydrocodone Bitart/Acetaminophen 1 tab 01/11/20 10:00 01/12/20 01:51 [place] 5-325 Mg PO 1 tab Q8H JONELLE Administration Bupropion HCl 150 mg 01/11/20 09:00 01/12/20 08:24 Wellbutrin PO 150 mg QAM JONELLE Administration Bupropion HCl 75 mg 01/10/20 21:35 01/11/20 21:39 Wellbutrin PO 75 mg HS JONELLE Administration Calcium Polycarbophil 1,250 mg 01/11/20 09:00 01/12/20 08:24 Fiber Con PO 1,250 mg BID JONELLE Administration Dextrose 12.5 gm 01/10/20 20:46 Dextrose 50% Syringe IV PUSH PRN PRN Hypoglycemia Protocol Ergocalciferol 50,000 unit 01/11/20 09:00 01/11/20 10:32 Drisdol PO 50,000 unit WEEKLY JONELLE Administration Fentanyl Citrate 50 mcg 01/10/20 14:28 01/10/20 16:16 Sublimaze IV PUSH 50 mcg Q2H PRN Administration Pain Rated 7-10 Fluoxetine HCl 20 mg 01/10/20 21:00 01/12/20 08:24 Prozac PO 20 mg DAILY JONELLE Administration Gabapentin 300 mg 01/11/20 09:00 01/12/20 08:24 Neurontin PO 300 mg QAM JONELLE Administration Gabapentin 600 mg 01/11/20 21:00 01/11/20 21:39 Neurontin PO 600 mg HS JONELLE Administration Glucagon 1 mg 01/10/20 20:46 Glucagon For Inj IM PRN PRN Hypoglycemia Protocol Glucose 15 gm 01/10/20 20:46 Glutose 15 PO PRN PRN Hypoglycemia Protocol Lactated Ringer's 1,000 mls @ 95 mls/hr 01/10/20 14:30 01/12/20 06:33 Lr - Lactated Ringers Iv IV CONT 95 mls/hr .[id number] JONELLE Infusion Dextrose 1,000 mls @ 100 mls/hr 01/10/20 20:46 Dextrose 5% 1,000 Ml IVPB PRN PRN Hypoglycemia Protocol Ceftriaxone Sodium/Dextrose 1 gm in 50 mls @ 100 mls/hr 01/11/20 14:00 01/11/20 13:39 Rocephin 1 Gm/D5w 50 Ml IVPB Infused Q24H JONELLE Infusion Lisinopril 5 mg 01/10/20 21:00 01/12/20 08:30 Prinivil PO Not Given DAILY JONELLE Loratadine 10 mg 01/11/20 09:00 01/12/20 08:24 Claritin PO 10 mg DAILY JONELLE Administration Multivitamins/Minerals 1 tab 01/11/20 09:00 01/12/20 08:24 Centrum Silver PO 1 tab DAILY JONELLE Administration Non-Formulary Medication 1,000 mg 01/11/20 09:00 01/11/20 13:
--- NOTE | 2020-01-12 13:14 | PM.DS ---
DS: Diagnosis Admitting Diagnosis Admitting Diagnosis: Calculus of ureter Discharge Diagnosis (1) Obstruction of right ureteropelvic junction due to stone: Code(s): N20.1 - Calculus of ureter Status: Acute Assessment and Plan: Urology consulted and this morning she underwent a cystoscopy, right retrograde pyelogram along with stent placement The patient's pain is under control at this time with her home narcotic medications. Dr. Jensen evaluated the patient today and ordered a KUB which showed Bilateral nephrolithiasis with repositioning post retrograde Polygram and right internal ureteral stent placement of a 10 mm stone previously obstructing the proximal right ureter which is now positioned in the lower pole of the right kidney post retrograde pyelogram and right internal ureteral stent placement. Dr. Jensen agrees with the plan for discharge at this time and will have her follow up as an outpatient for further treatment of her stones. The patient understands and agrees with the plan. All questions answered. (2) E. coli UTI: Code(s): N39.0 - Urinary tract infection, site not specified; B96.20 - Unspecified Escherichia coli [E. coli] as the cause of diseases classified elsewhere Status: Acute Assessment and Plan: Urine culture shows E. coli UTI. She was started on IV ceftriaxone. She denies any urinary symptoms at this time. She will be discharged home on Cefdinir for UTI. (3) Bilateral nephrolithiasis: Code(s): N20.0 - Calculus of kidney Status: Acute Assessment and Plan: Ramey catheter was not placed after the procedure. (4) Type 2 diabetes mellitus with peripheral neuropathy: Code(s): E11.42 - Type 2 diabetes mellitus with diabetic polyneuropathy Status: Acute Assessment and Plan: The patient denies being on any metformin for years. Her hemoglobin A1c was 5.7%. I discontinued her insulin sliding scale, Accu-Cheks and change her diet to regular. (5) Primary adenocarcinoma of lower lobe of left lung: Code(s): C34.32 - Malignant neoplasm of lower lobe, left bronchus or lung Status: Acute Assessment and Plan: Status post resection. Plans to begin chemotherapy per Dr. Rodriguez in the near future. (6) Hypertension: Code(s): I10 - Essential (primary) hypertension Status: Acute Assessment and Plan: Initial reading on arrival to the emergency department was 175/107, likely due to pain. Most recent reading was 105/58. She is feeling well without any issues. (7) COPD (chronic obstructive pulmonary disease): Code(s): J44.9 - Chronic obstructive pulmonary disease, unspecified Status: Acute Assessment and Plan: No acute issues. Continue maintenance inhalers. DS: Summary Hospital Course Reason for hospitalization: Patient is a 58-year-old woman with a history of adenocarcinoma of the left lower lung status post lobectomy, who presented to the emergency department with sudden onset of right flank pain with radiation to mid back and right lower quadrant. Initial vitals showed temperature of 97.6?, blood pressure 175/107, heart rate 60, respiratory rate 20, oxygen saturation 95% on room air. Initial labs showed normal CBC with differential, normal CMP other than slightly elevated CO2 at 34, glucose at 163. CT Abd/Pelvis showed Right UPJ 1 cm stone, moderate obstructive nephropathy. Bilateral nephrolithiasis. Urinalysis showed cloudy urine with positive nitrites, 3+ leukocyte esterase, and concerns for infection. She was admitted with a urology consul
--- NOTE | 2020-01-14 10:53 | PC.NURSE ---
Spoke with Dr. Reyes regarding the patient's u cx. It is resistant to the Ceftriaxone patient was sent home on. He prescribed Augmentin 875 mg po BID for 7 days. Called patient with information. Called into pharmacy.
== END 2020-01-12 14:15 | disposition home or self-care (01) | DRG 661 ==
LOC: ANHED 14:40 → ANH2MED 14:54
PROVIDERS: Emergency Medicine Emergency Medical Services; Physician Assistant; Urology; Admitting Provider Internal Medicine; Emergency Provider Emergency Medicine; PCP Family Medicine; Visit Provider Internal Medicine
PROC: 0T768DZ Dilation of Right Ureter with Intraluminal Device, Via Natural or Artificial Opening Endoscopic (ICD-10-PCS; CPT 52352; principal; 2020-01-11 07:50)
DX: N13.6 Pyonephrosis (principal); B96.20 Unspecified Escherichia coli [E. coli] as the cause of diseases classified elsewhere; E11.42 Type 2 diabetes mellitus with diabetic polyneuropathy; I10 Essential (primary) hypertension; J44.9 Chronic obstructive pulmonary disease, unspecified; F41.8 Other specified anxiety disorders; E78.5 Hyperlipidemia, unspecified; G47.33 Obstructive sleep apnea (adult) (pediatric); G25.81 Restless legs syndrome; E55.9 Vitamin D deficiency, unspecified; E66.9 Obesity, unspecified; Z68.35 Body mass index [BMI] 35.0-35.9, adult; Z85.118 Personal history of other malignant neoplasm of bronchus and lung; Z90.49 Acquired absence of other specified parts of digestive tract; Z87.891 Personal history of nicotine dependence
CPT/HCPCS: 36415; 51701; 74018; 74176; 74420; 80048; 80053; 81001; 83036; 83690; 85025; 87077; 87086; 87088; 87186; 96361; 96365; 96367; 96375; 96376; 99285; A9270; C1758; C1769; C2617; G0378; J0131; J0696; J1100; J2001; J2250; J2270; J2370; J2405; J2704; J3010; J7030; J7120; Q9966

== ENCOUNTER 2020-01-26 10:02 | Outpatient (CLI) | payer MEDICARE, SELFPAY ==
[2020-01-26 10:14] LABS: Basophils Absolute Auto 0.1 K/mm3 (0.0-0.1); Basophils Percent Auto 1.1 % (0.2-1.2); Eosinophils Absolute Auto 0.3 K/mm3 (0-0.3); Eosinophils Percent Auto 4.3 % (0-4.4); Hematocrit 39.7 % (37.0-47.0); Hemoglobin 12.4 g/dL (12.0-15.0); Immature Granulocyte Absolute 0.01 K/mm3 (0.00-0.031); Immature Granulocyte Percent A 0.1 % (0-0.5); Lymphocytes Absolute Auto 2.32 K/mm3 (0.9-3.2); Lymphocytes Percent Auto 30.9 % (18.3-44.2); Mean Corpuscular HGB Conc 31.2 g/dl (32-36); Mean Corpuscular Hemoglobin 28.4 pg (26-34); Mean Corpuscular Volume 90.8 fl (80-100); Mean Platelet Volume 9.3 fl (7.4-10.4); Monocytes Absolute Auto 0.6 K/mm3 (0.1-0.6); Monocytes Percent Auto 7.5 % (2.6-8.5); Neutrophils Absolute Auto 4.2 K/mm3 (1.3-6.7); Neutrophils Percent Auto 56.1 % (45.5-73.1); Platelet Count Result 287 k/mm3 (150-375); Red Blood Count 4.37 M/mm3 (4.2-5.4); Red Cell Distribution Width 13.6 % (11.5-14.5); White Blood Count 7.5 K/mm3 (4.5-10.0)
[2020-01-26 10:17] LABS: Blood Urea Nitrogen 11 mg/dL (8-26); Carbon Dioxide 29 mmol/L (22-30); Chloride 101 mmol/L (98-109); Estimated Glomerular Filt Rate > 60; Glucose 110 mg/dL (70-105); Potassium 3.7 mmol/L (3.5-4.9); Sodium 141 mmol/L (138-146)
[2020-01-26 12:34] LABS: Alanine Aminotransferase 10 U/L (4-35); Albumin Level 4.2 g/dL (3.5-5.1); Alkaline Phosphatase 93 U/L (38-126); Aspartate Amino Transferase 20 U/L (14-36); Bilirubin,Total 0.5 mg/dL (0.2-1.3); Blood Urea Nitrogen 12 mg/dL (7-17); Calcium 9.4 mg/dL (8.4-10.2); Carbon Dioxide 32 mmol/L (22-30); Chloride 102 mmol/L (98-107); Estimated Glomerular Filt Rate > 60; Glucose 112 mg/dL (65-105); Potassium 3.9 mmol/L (3.4-5.0); Sodium 138 mmol/L (137-145)
== END 2020-01-26 10:03 | disposition home or self-care (01) ==
LOC: ANHLAB 10:03
PROVIDERS: PCP Family Medicine; Visit Provider Internal Medicine Hematology & Oncology
DX: C34.92 Malignant neoplasm of unspecified part of left bronchus or lung (principal)
CPT/HCPCS: 36415; 80048; 80053; 85025

== ENCOUNTER 2020-01-29 00:09 | Day surgery (SDC) | payer MEDICARE, SELFPAY ==
[2020-01-27 16:20] VITALS: BMI 32.1
[2020-01-29] VITALS (8 sets, daily range): BP systolic 97–129; BP diastolic 58–74; PULSE 53–94; RESP 12–18; TEMP 36.1–36.4; O2SAT 94–99
--- NOTE | ~2020-01-29 | XR_ITS ---
XR chest port-a-cath/central 01/29/2020 12:39 Indication: Insertion of portacatheter Procedure: AP portable chest Comparison: Comparison to multiple prior studies sequentially, with oldest reviewed study dated 05/14. Findings: Right IJ portacatheter tip in the SVC. Cardiomegaly. There is asymmetric airspace disease i n the left lung with left thoracic volume loss and mediastinal shift leftward. No significant pleural effusion or pneumothorax. Calcified granulomas right lung base. Impression: 1: Diffuse left-sided airspace disease with thoracic volume loss, likely atelectasis. Cannot exclude superimposed pneumonia. 2: Cardiomegaly. Reviewed, dictated and finalized at location A. Impression: 1: Diffuse left-sided airspace disease with thoracic volume loss, likely atelec tasis. Cannot exclude superimposed pneumonia. 2: Cardiomegaly.
--- NOTE | ~2020-01-29 | XR_ITS ---
XR fl guide central line place 01/29/2020 13:57 Indication: Right-sided portacatheter placement Procedure: Single fluoroscopic image right upper thorax. 22 seconds of fluoroscopy. Comparison: 01/29/2020 Findings: There is a right internal jugular port catheter, caudal tip of the distal end of the cathet er not visualized. Please refer to procedural report for details. Impression: 1: Status post recent placement of right internal jugular portacatheter. Reviewed, dictated and finalized at location A. Impression: 1: Status post recent placement of right internal jugular portacatheter.
--- NOTE | 2020-01-29 08:56 | WPDANESEPPF ---
Anes - Initial Pre Proc Eval Procedure: Operation Date: 01/29/20 11:30 Proposed Procedures p Insertion Girish Cath - Todd Soto DO Date/Time: 01/29/20 08:56 Surgeon: Todd Soto DO Pre Op Diagnosis: Non small cell CA left lung Patient Data Age: 59 Gender: F Height: 1.65 m Weight: 87.54 kg Allergies Allergy/AdvReac Type Severity Reaction Status Date / Time nickel Allergy Unknown Rash, Verified 01/27/20 16:21 ITCHING Home Medications Medication Instructions Recorded Confirmed Type Adults Multivitamin 1 tablet PO DAILY 01/10/20 01/27/20 History Anoro Ellipta 1 inh INHALATION DAILY 01/10/20 01/27/20 History aspirin [Aspir-81] 81 mg PO BID 01/10/20 01/27/20 History bupropion HCl 75 mg PO BID 01/10/20 01/27/20 History calcium polycarbophil [FiberCon] 1,250 mg PO BID 01/10/20 01/27/20 History ergocalciferol (vitamin D2) 1,250 mcg PO WEEKLY 01/10/20 01/27/20 History [Vitamin D2] flaxseed oil 1,000 mg PO DAILY 01/10/20 01/27/20 History fluoxetine 20 mg PO DAILY 01/10/20 01/27/20 History gabapentin 300 mg PO BID 01/10/20 01/27/20 History hydrocodone-acetaminophen 1 tablet PO Q8H 01/10/20 01/27/20 History lisinopril 5 mg PO DAILY 01/10/20 01/27/20 History loratadine 10 mg PO DAILY 01/10/20 01/27/20 History potassium chloride 20 meq PO HS 01/10/20 01/27/20 History pravastatin 40 mg PO HS 01/10/20 01/27/20 History ropinirole [Requip XL] 4 mg PO HS 01/10/20 01/27/20 History Saccharomyces boulardii [Florastor] 250 mg PO BID #20 cap 01/12/20 01/27/20 Rx Patient hx anesthesia problems: none Family hx anesthesia problems: none PMFSH Social History Social History Social History: The patient lives in [place] with her . He is nearly 80 years old and suffers from dementia. She designates her daughter, Marysol Reynoso, as her surrogate decision maker and she wishes to be a full code. She is on disability. She smoked up to 2 packs of cigarettes per day for at least 50 years and quit December 04, 2019 at 17:00. No alcohol or drug abuse. Smoking packs per day: 2 Smoking cigarettes per day: 40.0 Years smoked: 49 Smoking pack-years: 98.00 Spiritual care concerns: No Agree to blood products: Yes Anes - Eval Final PreProcedure Day of Procedure 01/29/20 08:56 Patient weight: obese Heart: regular rate and rhythm Lungs: clear to auscultation and normal air movement Airway: Mallampati scale class II Neurological: alert and oriented Last oral intake: >/= 8 hours ASA classification: IV Emergent: no Anesthetic plan: proceed Anesthesia type and monitoring: general GIVS and LMA Informed Consent: The patient's anesthetic plan and its attendant risks and benefits were discussed with the patient/family/POA. Questions were solicited and answers provided to the satisfaction of the patient/family/POA.
[2020-01-29 10:00] LABS: Partial Thromboplastin Time 25.1 SECONDS (22.3-36.8); Prothrombin Time 12.6 Seconds (11.1-14.7)
[2020-01-29] MEDS: IBUPROFEN IV 800 MG/200 ML 800 MG/200 ML BAG 400 MG IVPB (10:30)
--- NOTE | 2020-01-29 10:57 | PM.IMHP ---
H&P: HPI History of Present Illness Chief complaint: Non small cell CA left lung Narrative: Nanda Fajardo is a 59 year old female who presents for Port placement. She has a hx of lung cancer and underwent left lobectomy a couple months ago. She is scheduled to start chemo soon. Review of Systems Review of Systems: All systems reviewed & are unremarkable except as noted in HPI and below Eyes: Eyes: Denies change in vision ENT: Denies hearing loss, Denies neck pain and Denies sore throat Cardiovascular: Cardiovascular: Denies chest pain and Denies dyspnea Respiratory: Respiratory: Denies cough, Denies dyspnea and Denies wheezing Genitourinary: Genitourinary: Denies hematuria and Denies dysuria Musculoskeletal: Musculoskeletal: Denies arthralgias, Denies joint swelling and Denies neck pain Allergic/Immunologic: Allergic/Immunologic: Denies wheezing PMFSH Past Medical History Medical History COPD (chronic obstructive pulmonary disease) Depression with anxiety Diastolic dysfunction Echocardiogram November 27, 2019 showed normal left ventricular systolic size and function with an ejection fraction of 65 to 70%, mild increase in left ventricular wall thickness, left ventricular diastolic dysfunction grade 1, and mild aortic valve stenosis with a valve area of 1.6 centimeters squared. GERD (gastroesophageal reflux disease) Hyperlipidemia Hypertension Obstructive sleep apnea Intolerant to CPAP. Perforated gastric ulcer With intra-abdominal abscess in January 2018, status post hemigastrectomy with Billroth-I gastroduodenostomy. Primary adenocarcinoma of lower lobe of left lung Status partial left lower lobectomy November 2019 at [facility]. She is to start chemotherapy per Dr. Rodriguez in the near future. Restless leg syndrome Type 2 diabetes mellitus with peripheral neuropathy Hemoglobin A1c was 6.1% in January 2019. Vitamin D deficiency Surgical History Surgical History History of Billroth I operation Ghassan gastrectomy with Billroth 1 gastroduodenostomy for large perforated ulcer in the posterior greater curvature on February 19, 2018, per Dr. Jose Ramon June with subsequent closure of abdominal wound dehiscence February 27, 2018. History of laparoscopic cholecystectomy History of tonsillectomy History of tubal ligation Status post partial lobectomy of lung Robotic assisted left lower lobe, done at [facility] in November 2019. Family History Family History Mother Patient's mother is , Onset Age: 71 History of blood clots Congestive heart failure Diabetes mellitus Hypertension Father Patient's father is , Onset Age: 52 Acute myocardial infarction Sibling History of blood clots Cerebrovascular accident Chronic obstructive pulmonary disease Diabetes mellitus Hypertension Sibling Chronic obstructive pulmonary disease Diabetes mellitus Other Family history of arthritis Social History Social History Social History: The patient lives in [place] with her . He is nearly 80 years old and suffers from dementia. She designates her daughter, Marysol Reynoso, as her surrogate decision maker and she wishes to be a full code. She is on disability. She smoked up to 2 packs of cigarettes per day for at least 50 years and quit December 04, 2019 at 17:00. No alcohol or drug abuse. Smoking packs per day: 2 Smoking cigarettes per day: 40.0 Years smoked: 49 Smoking pack-years: 98.00 Spiritual care concerns: No Agree to blood products: Yes Meds Home Medications and Allergies Home Medications Medication Instructions Recorded Confirmed Type Adults Multivitamin 1 tablet PO DAILY 01/10/20 01/29/20 History Hermelinda Mistry
[2020-01-29] MEDS: ceFAZolin 2 GM/D5W 50 ML 2 GM/50 ML BAG IVPB (11:09)
[2020-01-29] MEDS: LIDO 1%/EPINEPHRINE 1:100,000 20 ML VIAL INFILTRATE (11:39)
[2020-01-29] MEDS: HEPARIN SODIUM 5,000 UNITS/ML VIAL 5000 UNITS IRRIGATION (11:40)
[2020-01-29] MEDS: HEPARIN SODIUM, PORCINE 10,000 UNITS/10 ML VIAL 10 UNITS IV PUSH (11:41)
[2020-01-29] MEDS: LACTATED RINGERS 1,000 ML 30 ML IV CONT (12:08)
--- NOTE | 2020-01-29 12:12 | PM.PROC ---
Procedure Note - Detailed Date of procedure: 01/29/20 Pre-op diagnosis: Non small cell CA left lung Post-op diagnosis: same Procedure performed: Right internal jugular Port-A-Cath placement using ultrasound and fluoroscopic guidance Description of procedure: Procedure as well as risks, benefits, and alternatives were discussed with patient. Written consent was obtained and placed in chart prior to procedure. Patient was brought back to surgical suite. Was placed supine on operating table. Time-out was done confirm patient procedure. IV sedation was then administered by the Anesthesia Department. The chest and neck area was prepped and draped in sterile fashion using chlorhexidine prep. Patient was placed in Trendelenburg position. SonoSite ultrasound was used to identify the right internal jugular vein. It was visualized as a compressible vessel just lateral to the carotid artery. 1% lidocaine with epinephrine was infiltrated directly over the vessel under ultrasound guidance. An 18 gauge introducer needle was then advanced under ultrasound guidance directly into the Right internal jugular vein. Dark nonpulsatile blood was aspirated. A 0.035 in guidewire was then advanced through the needle under fluoroscopic guidance. The guidewire was visualized advancing all the way down into the superior vena cava. 1% lidocaine with epinephrine was then infiltrated on the right anterior chest and along the tract up to the guidewire insertion site. A 3 cm incision was made with a 15 blade scalpel, and electrocautery was then used for dissection down through the subcutaneous tissue to the pectoral fascia. A pocket was created just inferior to the incision using blunt dissection. A small you incision was then also made at the insertion site at the neck. The tunneler was then advanced from the chest incision up to the neck incision and the catheter tubing was brought up through this tract. The dilator and sheath were then advanced over the guidewire under fluoroscopic visualization. The dilator and guidewire were then removed leaving the sheath in place. The catheter tubing was then advanced through the sheath under fluoroscopic guidance. The sheath was unsnapped and carefully peeled away. The catheter tubing was released underneath the neck incision. Fluoroscopy was used to confirm proper placement of the catheter tubing and no kinks along its path. The catheter was then cut to proper length and secured to the port. The port was then accessed with a Bailey needle and aspirated and flushed with heparinized saline. The port function with ease. The port was then hep-locked with Hep-Lock solution. The port was then placed within the pocket that was created, and was secured to the fascia using 3 0 Prolene simple interrupted sutures. The patient was flattened out in bed. Francine's fascia was reapproximated using 3 0 Vicryl simple interrupted sutures. The skin of the incisions was then approximated using 4-0 Monocryl subcuticular suture. Exofin glue was then applied on top. The patient was then awakened from anesthesia and transferred to recovery. Implants: Smart Port CT port Anesthesia: MAC and local (1% lidocaine with epinephrine) Surgeon: Todd Soto DO Estimated blood loss (mL): 5 Complications: No immediate complications Condition: stable Disposition: same day Findings: SonoSite ultrasound was used to identify the right internal jugular vein. This was visualized as a large easily compressible vessel just lateral to the carotid artery. An 18 gauge introducer needle was advanced under ultrasound guidance directly into the lumen of the internal jugular vein. Fluoroscopy was then used to guide advancement of the guidewire. The dilator and sheath were advanced under fluoroscopy. The catheter tubing was then placed under fluoroscopic guidance. The final fluoroscopic images demonstrated catheter tip in the distal SVC, and no kinks along its path. Chest x
[2020-01-30 05:59] LABS: Glucose Point of Care 122 (65-105)
== END 2020-01-29 13:40 | disposition home or self-care (01) ==
PROVIDERS: PCP Family Medicine; Visit Provider Surgery
PROC: (CPT 36561; principal; 2020-01-29 11:30)
DX: C34.92 Malignant neoplasm of unspecified part of left bronchus or lung (principal); J44.9 Chronic obstructive pulmonary disease, unspecified; I11.0 Hypertensive heart disease with heart failure; I50.30 Unspecified diastolic (congestive) heart failure; E78.5 Hyperlipidemia, unspecified; K21.9 Gastro-esophageal reflux disease without esophagitis; G47.33 Obstructive sleep apnea (adult) (pediatric); E11.40 Type 2 diabetes mellitus with diabetic neuropathy, unspecified; E55.9 Vitamin D deficiency, unspecified; F41.8 Other specified anxiety disorders; Z90.2 Acquired absence of lung [part of]; Z87.11 Personal history of peptic ulcer disease; Z98.84 Bariatric surgery status; Z79.82 Long term (current) use of aspirin; Z87.891 Personal history of nicotine dependence; E66.9 Obesity, unspecified; Z68.32 Body mass index [BMI] 32.0-32.9, adult
CPT/HCPCS: 36561; 36415; 77001; 85610; 85730; C1788; J0690; J1100; J1644; J1741; J2250; J2370; J2405; J2704; J2710; J3010; J7030; J7120

== ENCOUNTER 2020-02-08 21:38 | Emergency (ER) | payer MEDICARE, SELFPAY ==
--- NOTE | ~2020-02-08 | XR_ITS ---
EXAMINATION: XR abdomen/kub 1V DATE: 02/08/2020 22:24 INDICATION: Ureteral stent. Right flank pain. TECHNIQUE: A supine view of the abdomen on 2 radiographs was obtained. COMPARISON: 01/12/2020 FINDINGS: Right internal ureteral stent which remains in expected position with loops formed over the region of the bladder and right renal pelvis. At least 2 stones the largest measuring up to 8 mm in the right kidney and 4 stones at the left kidney measuring up to 1.3 cm. No stones seen along the course of the ureters. Moderate amount of colonic stool. No dilated loops of bowel to suggest obstruction. Cholecy stectomy clips in the right upper quadrant. Severe lumbar spondylosis.. IMPRESSION: 1. Bilateral nephrolithiasis with unchanged right internal ureteral stent. Reviewed, dictated and finalized at location A.
--- NOTE | ~2020-02-08 | CT_ITS ---
EXAMINATION: CT abdomen pelvis wo con DATE: 02/09/2020 00:45 INDICATION: Right flank pain. Urinary urgency. Stent placed one month ago. TECHNIQUE: Computed tomography (CT) of the abdomen and pelvis was performed without intravenous contr ast. Automated exposure control and iterative reconstruction technique were employed. Exam dose: 441 .79 mGy-cm total exam DLP. COMPARISON: 01/10/2020 CT abdomen pelvis FINDINGS: There is a large calcified pulmonary granuloma in the anterior basilar segment of the right lower lobe. There is discoid atelectasis and/or scarring in the dependent lower lobes. No pericardial or pleural effusion. There are multiple calcified hepatic and splenic granulomas. Status post cholecystectomy. No bile duct or pancreatic duct dilatation. No hepatic, splenic, pancrea tic, adrenal or renal space-occupying mass lesion is detected. The uterus and adnexal areas are unrem arkable. There is a right internal urinary stent, the proximal pigtail formed in the right renal pelvis, the d istal pigtail formed in the urinary bladder. There are multiple bilateral renal stones: There is an approximately 9 mm calculus in the right lower pole infundibulum with attenuation 795 Hounsfield units. There are a couple of punctate right renal stones, one in the upper pole, the other in the mid to lower right kidney. There is mild hydronephros is, diminished since 01/10/2020 There is a 10.7 x 14.6 mm left renal pelvic stone with attenuation 681 Hounsfield units. There are multiple stones in the lower pole collecting system of the left kidney, measuring up to william roximately 9 x 11 mm overall dimension. There is a punctate nonobstructing upper pole left renal calc ulus. No ureteral calculus or hydroureteronephrosis is evident. The urinary bladder is unremarkable. The uterus and adnexal areas are unremarkable. There is atherosclerotic calcification of the abdominal aorta but no aneurysm. There is atherosclerot ic calcification of the iliac and femoral arteries. No intraperitoneal or retroperitoneal or pelvic m ass lesion or adenopathy or ascites. Diffuse idiopathic skeletal hyperostosis of the lower thoracic and upper lumbar spine. There is multi level degenerative disc disease, most pronounced at L5-S1. There is degenerative change at the apophy seal joints with associated grade 1 anterolisthesis at L3-4 and L4-5 and L5-S1. IMPRESSION: Interval placement of right internal urinary stent; mild residual right hydronephrosis Bilateral nephrolithiasis Status post cholecystectomy Reviewed, dictated and finalized at Location A. Reviewed, dictated and finalized at location A.
[2020-02-08 21:44] VITALS: BP 129/66; PULSE 79; RESP 18; TEMP 36.5; O2SAT 99
[2020-02-08 21:47] VITALS: BP 147/76; PULSE 81; RESP 18; TEMP 36.7; O2SAT 98
[2020-02-08 22:15] LABS: Basophils Percent Auto 0.6 % (0.2-1.2); Eosinophils Absolute Auto 0.4 K/mm3 (0-0.3); Eosinophils Percent Auto 5.5 % (0-4.4); Hematocrit 37.1 % (37.0-47.0); Hemoglobin 11.9 g/dL (12.0-15.0); Immature Granulocyte Absolute 0.02 K/mm3 (0.00-0.031); Immature Granulocyte Percent A 0.3 % (0-0.5); Lymphocytes Absolute Auto 2.76 K/mm3 (0.9-3.2); Lymphocytes Percent Auto 39.6 % (18.3-44.2); Mean Corpuscular HGB Conc 32.1 g/dl (32-36); Mean Corpuscular Hemoglobin 28.8 pg (26-34); Mean Corpuscular Volume 89.8 fl (80-100); Mean Platelet Volume 9.8 fl (7.4-10.4); Monocytes Absolute Auto 0.6 K/mm3 (0.1-0.6); Neutrophils Absolute Auto 3.1 K/mm3 (1.3-6.7); Platelet Count Result 212 k/mm3 (150-375); Red Blood Count 4.13 M/mm3 (4.2-5.4); Red Cell Distribution Width 14.2 % (11.5-14.5)
--- NOTE | 2020-02-08 22:25 | ED.FEMALEGU ---
HPI - Female Genitourinary General Chief complaint: Urogenital-Female Stated complaint: flank pain Time Seen by Provider: 02/08/20 21:54 History of Present Illness HPI Narrative: Patient is a 59-year-old female who presents the ER with right-sided flank pain. Began this evening. Patient reports history of kidney stone with ureteral stent placement 1 month ago. She has been I am able to get the stent out. She followed up with another physician at [facility] and they would not remove it because they did not place a stent. She denies any fevers/sweats/chills. She does have occasional urinary frequency but no dysuria. This is associated with suprapubic discomfort. No aggravating or alleviating factors that she can report. Related Data Home Medications Medication Instructions Recorded Confirmed Adults Multivitamin 1 tablet PO DAILY 01/10/20 01/29/20 Anoro Ellipta 1 inh INHALATION DAILY 01/10/20 01/29/20 aspirin [Aspir-81] 81 mg PO BID 01/10/20 01/29/20 bupropion HCl 75 mg PO BID 01/10/20 01/29/20 calcium polycarbophil [FiberCon] 1,250 mg PO BID 01/10/20 01/29/20 ergocalciferol (vitamin D2) 1,250 mcg PO WEEKLY 01/10/20 01/29/20 [Vitamin D2] flaxseed oil 1,000 mg PO DAILY 01/10/20 01/29/20 fluoxetine 20 mg PO DAILY 01/10/20 01/29/20 gabapentin 300 mg PO BID 01/10/20 01/29/20 hydrocodone-acetaminophen 1 tablet PO Q8H 01/10/20 01/29/20 lisinopril 5 mg PO DAILY 01/10/20 01/29/20 loratadine 10 mg PO DAILY 01/10/20 01/29/20 potassium chloride 20 meq PO HS 01/10/20 01/29/20 pravastatin 40 mg PO HS 01/10/20 01/29/20 ropinirole [Requip XL] 4 mg PO HS 01/10/20 01/29/20 Allergies Allergy/AdvReac Type Severity Reaction Status Date / Time nickel Allergy Unknown Rash, Verified 01/29/20 10:09 ITCHING Review of Systems Review of Systems: All systems reviewed & are unremarkable except as noted in HPI and below Gastrointestinal: Gastrointestinal: Reports abdominal pain, Denies nausea and Denies vomiting Genitourinary: Genitourinary: Denies hematuria, Denies dysuria and Reports flank pain PMFSH Social History Social History Social History: The patient lives in [place] with her . He is nearly 80 years old and suffers from dementia. She designates her daughter, Marysol Reynoso, as her surrogate decision maker and she wishes to be a full code. She is on disability. She smoked up to 2 packs of cigarettes per day for at least 50 years and quit December 04, 2019 at 17:00. No alcohol or drug abuse. Smoking packs per day: 2 Smoking cigarettes per day: 40.0 Years smoked: 49 Smoking pack-years: 98.00 Gender identity (if verbalized by the patient): Female Spiritual care concerns: No Agree to blood products: Yes Exam Narrative: Exam Narrative: GENERAL: Well-appearing, well-nourished, and in no acute distress. HEAD: Normocephalic, atraumatic. ENT: Mucous membranes moist. CHEST: Clear to auscultation. No respiratory distress. HEART: Regular rate and rhythm. Normal peripheral pulses. ABDOMEN: Soft, nontender, nondistended, normal active bowel sounds. Mild right CVA tenderness EXTREMITIES: Normal range of motion. No edema. SKIN: Warm, dry, no rash. Well-healing scars left back from previous surgery. NEURO: Alert and oriented x3. PSYCH: Normal mood and affect. Course Course Emergency Course: Patient informed of results. Have spoken with Dr. Jensen. He recommends giving patient dose of IV antibiotics and placing her on Macrobid for outpatient. Patient is afebrile without leukocytosis. Patient did have an ESBL positive E. coli [address] Jensen also recommends that patient obtain a noncontrast CT scan. He will review it tomorrow and if her kidney stone has been pushed up higher into her kidney he will likely remove her stent but ultimately she will need surgery over at [facility] to have her renal stones removed. He reports he has been attempt
[2020-02-08 22:38] LABS: Blood Urea Nitrogen 16 mg/dL (7-17); Calcium 8.9 mg/dL (8.4-10.2); Carbon Dioxide 29 mmol/L (22-30); Chloride 104 mmol/L (98-107); Estimated CRCL calculation 94 ml/min; Estimated Glomerular Filt Rate > 60; Glucose 152 mg/dL (65-105); Potassium 3.6 mmol/L (3.4-5.0); Sodium 137 mmol/L (137-145)
[2020-02-08 22:48] LABS: Add Urine Microscopic? YES; Appearance Urine Cloudy (Clear); Bacteria Urine 3+ /hpf; Bilirubin Urine Negative (Negative); Blood Urine 3+ (Negative); Color Urine Yellow (Yellow); Glucose Urine UA Negative (Negative); Ketones Urine Negative (Negative); Leukocyte Esterase Ur 3+ LEU/UL (Negative); Mucus Urine Rare /lpf; Nitrate Urine Positive (Negative); Protein Urine 2+ mg/dL (Negative); RBC Urine >75 /hpf (0-2); Specific Grav Ur 1.018 (1.001-1.035); Squamous Epithelial Cell Urine Many /hpf (Few); Urobilinogen Urine Negative mg/dL (<2.0); WBC Urine >75 /hpf
[2020-02-08 23:22] VITALS: BP 101/60; PULSE 66; RESP 15; O2SAT 97
--- NOTE | 2020-02-08 23:23 | PC.NURSE ---
Assumed care of pt at this time report from ROSIE Duarte
[2020-02-08 23:54] VITALS: BP 100/48; PULSE 77; RESP 5; O2SAT 96
[2020-02-09] MEDS: ERTAPENEM 1 GM/NS 50 ML 1 GM/50 ML BAG IVPB
[2020-02-09 01:25] VITALS: BP 100/55; PULSE 77; RESP 17; O2SAT 97
== END 2020-02-09 01:25 | disposition home or self-care (01) ==
PROVIDERS: Emergency Provider Emergency Medicine; PCP Family Medicine
DX: N39.0 Urinary tract infection, site not specified (principal); R10.9 Unspecified abdominal pain; F03.90 Unspecified dementia, unspecified severity, without behavioral disturbance, psychotic disturbance, mood disturbance, and anxiety; Z87.891 Personal history of nicotine dependence
CPT/HCPCS: 36415; 74018; 74176; 80048; 81001; 85025; 87077; 87086; 87088; 87186; 96365; 99284; J1335

== ENCOUNTER 2020-08-23 10:11 | Outpatient (NON) | payer MEDICARE, SELFPAY ==
[2020-08-24 01:01] LABS: SARS-CoV-2 RNA PCR Negative
== END 2020-08-23 10:12 ==
PROVIDERS: PCP Family Medicine; Visit Provider Family Medicine
DX: B34.9 Viral infection, unspecified (principal); Z20.828 Contact with and (suspected) exposure to other viral communicable diseases
CPT/HCPCS: 87635; C9803; U0003

== ENCOUNTER 2020-08-23 12:18 | Outpatient (CLI) | payer MEDICARE, SELFPAY ==
--- NOTE | ~2020-08-23 | US_ITS ---
EXAMINATION:US venous doppler LE BI INDICATION:Leg edema TECHNIQUE: Multiple grayscale, color flow and Doppler images of the right and left lower extremity de ep venous systems were obtained and reviewed. COMPARISON:No prior studies for comparison. FINDINGS: The common femoral, superficial femoral and popliteal veins demonstrate normal respiratory variation, augmentation and compressibility. Color flow is also seen within the posterior tibial, pe roneal, greater saphenous and profunda veins. IMPRESSION: 1: No lower extremity deep venous thrombosis. Reviewed, dictated and finalized at location B. STANT MERCHANDISE MANAGER
== END 2020-08-23 12:19 | disposition home or self-care (01) ==
PROVIDERS: PCP Family Medicine; Visit Provider Family Medicine
DX: R60.0 Localized edema (principal)
CPT/HCPCS: 87635; 93970; C9803; U0003

== ENCOUNTER 2020-08-30 08:09 | Outpatient (CLI) | payer MEDICARE, SELFPAY ==
--- NOTE | ~2020-08-30 | CT_ITS ---
EXAMINATION: CT chest w con DATE: 08/30/2020 08:47 INDICATION: Restaging: Non-small cell cancer of left lung TECHNIQUE: Computed tomography (CT) of the chest was performed with 75 cc Omnipaque 350 intravenous c ontrast. Automated exposure control and iterative reconstruction technique were employed. Exam dose: 392.08 mGy-cm total exam DLP. COMPARISON: 01/29/2020 portable AP chest 11/11/2019 CT chest abdomen pelvis FINDINGS: Status post left lower lobe resection. There is mild discoid atelectasis or scarring at the left or right posterior lung bases. There is a large calcified pulmonary granuloma in the anterior basilar segment of the right lower lob e as well as right calcified hilar nodes. Calcified hepatic and splenic granulomas are noted. No pulmonary infiltrate or consolidation . There are scattered occasional small pulmonary opacities, the largest in the posterior left mid lung, measuring approximately 5 mm maximal dimension (series 4 image 45. These may be post infectious resi dual. Small primary pulmonary malignancy or metastasis is not definitively excluded. Follow-up CT tho rax in 6 months is recommended. Normal heart size. Coronary artery calcifications. Thoracic aortic, great vessel and coronary artery calcifications. Thoracic aortic aneurysm measures up to 4.6 cm diameter; normal caliber of the aortic arch and descending thoracic aorta. No evidence of thoracic aortic dissection. Borderline heart size. No pericardial or pleural effusion. No enlarged hilar or mediastinal lymph nodes. Right Port-A-Cath catheter tip in right atrium. IMPRESSION: Status post left lower lobe resection for history of lung cancer Scattered 5 mm smaller occasional urinary opacities; differential diagnosis includes postinfectious r esidual or small primary or metastatic neoplasm. Six-month CT thorax follow-up is recommended. Thoracic ascending aortic aneurysm Aortic, great vessel and coronary atherosclerotic calcifications Right Port-A-Cath in right atrium Old granulomatous disease Reviewed, dictated and finalized at Location A. Reviewed, dictated and finalized at location A. RUCTIONAL DESIGN MANAGER IMPRESSION: Status post left lower lobe resection for history of lung cancer Scattered 5 mm smaller occasional urinary opacities; differential diagnosis inc ludes postinfectious residual or small primary or metastatic neoplasm. Six-trent h CT thorax follow-up is recommended. Thoracic ascending aortic aneurysm Aortic, great vessel and coronary atherosclerotic calcifications Right Port-A-Cath in right atrium Old granulomatous disease
[2020-08-30 10:32] LABS: Estimated Glomerular Filt Rate > 60
== END 2020-08-30 08:10 | disposition home or self-care (01) ==
PROVIDERS: PCP Family Medicine; Visit Provider Internal Medicine Hematology & Oncology
DX: C34.92 Malignant neoplasm of unspecified part of left bronchus or lung (principal); I25.10 Atherosclerotic heart disease of native coronary artery without angina pectoris; I71.2 Thoracic aortic aneurysm, without rupture; Z95.828 Presence of other vascular implants and grafts; J98.4 Other disorders of lung; R59.0 Localized enlarged lymph nodes
CPT/HCPCS: 71260; Q9967

== ENCOUNTER 2020-11-11 11:22 | Outpatient (CLI) | payer MEDICARE, SELFPAY ==
--- NOTE | ~2020-11-11 | XR_ITS ---
XR humerus RT DATE: 11/11/2020 11:59 INDICATION: Right shoulder and arm pain TECHNIQUE: AP and lateral views COMPARISON: November 11, 2020 right shoulder FINDINGS: Right Port-A-Cath catheter is again noted. Right old pulmonary granulomatous disease. Diffuse osteopenia. No fracture or dislocation, periosteal reaction or bone destruction of the right humerus is evident. Normal alignment at the right shoulder and elbow joints. IMPRESSION: Osteopenia Reviewed, dictated and finalized at location B. ET PRESS OPERATOR HELPER IMPRESSION: Osteopenia
--- NOTE | ~2020-11-11 | XR_ITS ---
XR shoulder RT min 2V DATE: 11/11/2020 11:59 INDICATION: Right shoulder pain TECHNIQUE: 3 views COMPARISON: None FINDINGS: Right Port-A-Cath catheter is noted, catheter tip overlying superior cavoatrial junction. C alcified right lower lung granuloma and calcified right hilar nodes, consistent with old granulomatou s disease. Diffuse osteopenia. No fracture or dislocation, periosteal reaction or bone destruction of the right shoulder. No signifi cant abnormal right shoulder soft tissue calcification. IMPRESSION: Diffuse osteopenia; no fracture or dislocation or bone destruction of right shoulder Right Port-A-Cath Reviewed, dictated and finalized at location B. ACE GRINDER TENDER
== END 2020-11-11 11:23 | disposition home or self-care (01) ==
LOC: ANHIMG 11:33
PROVIDERS: PCP Family Medicine; Visit Provider Family Medicine
DX: M25.511 Pain in right shoulder (principal); M85.812 Other specified disorders of bone density and structure, left shoulder; M85.811 Other specified disorders of bone density and structure, right shoulder; Z95.828 Presence of other vascular implants and grafts
CPT/HCPCS: 73030; 73060

== ENCOUNTER 2021-02-28 06:39 | Outpatient (CLI) | payer MEDICARE, MEDICAID, SELFPAY ==
--- NOTE | ~2021-02-28 | CT_ITS ---
EXAMINATION: CT diagnostic chest w con EXAM DATE: 02/28/2021 07:09 INDICATION: Left-sided non-small cell lung cancer follow-up. TECHNIQUE: Spiral CT of the chest following intravenous injection of 75 mL Omnipaque 350. Axial, cor onal and sagittal images of the chest were reviewed. Coronal maximum intensity pixel images of chest reviewed. The dose-length product (DLP) for this examination was 732.88 mGy-cm. The exposure was t ailored according to patient size (auto mA exposure control), and iterative reconstruction (ASIR) was used as additional dose reduction technique. Comparison is made to prior examination from 08/30/2020. FINDINGS: Left lower lobectomy, stable surgical changes with left-sided volume loss, some mediastina l shift. There is left upper lobe 5 mm nodule on axial image 41, was subsolid in density on prior henrik dy. Several other groundglass nodular densities unchanged. Large right lower lobe calcified granuloma . Mild emphysema. Right-sided Chemo-Port. No central pulmonary emboli. The ascending aorta measures 5 .0 cm, mildly aneurysmal. There are no pleural or pericardial effusions. Tracheobronchial tree is p atent. There is a 12 x 9 mm left axillary lymph node, upper limits of normal in size, unchanged. Me diastinal lymph nodes are within normal size limits. There is no pneumothorax. Heart normal in siz e. There is moderate coronary arterial calcification, arterial sclerosis. There is hepatic steatos is. Cholecystectomy clips. There is thoracic spondylosis without osteoblastic or osteolytic lesions identified. IMPRESSION: 1. Left upper lobe 5 mm nodule, size unchanged but now solid density. Recommend additional 6-12 trent h follow-up chest CT. Otherwise stable exam. 2. Ascending aortic 5.0 cm aneurysm. 3. Mild emphysema. 4. Hepatic steatosis. Reviewed, dictated and finalized at location A. IMPRESSION: 1. Left upper lobe 5 mm nodule, size unchanged but now solid density. Recommen d additional 6-12 month follow-up chest CT. Otherwise stable exam. 2. Ascending aortic 5.0 cm aneurysm. 3. Mild emphysema. 4. Hepatic steatosis.
[2021-02-28 07:07] LABS: Estimated Glomerular Filt Rate > 60
== END 2021-02-28 06:40 | disposition home or self-care (01) ==
LOC: ANHIMG 06:44
PROVIDERS: PCP Family Medicine; Visit Provider Internal Medicine Hematology & Oncology
DX: C34.92 Malignant neoplasm of unspecified part of left bronchus or lung (principal); R91.1 Solitary pulmonary nodule; I71.2 Thoracic aortic aneurysm, without rupture; J43.9 Emphysema, unspecified; K76.0 Fatty (change of) liver, not elsewhere classified
CPT/HCPCS: 71260; Q9967

== ENCOUNTER 2021-05-17 08:53 | Outpatient (CLI) | payer MEDICARE, SELFPAY ==
--- NOTE | ~2021-05-17 | XR_ITS ---
EXAMINATION: XR knee LT 3V EXAM DATE: 05/17/2021 09:30 INDICATION: Pain in LT knee, injury 2 years ago. TECHNIQUE: Three projections of the left knee. Comparison is made to prior examination from 01/09/2019 . FINDINGS: There is bulky productive change at the patellofemoral compartment, osteoarthritis. There is moderate loss of the left knee medial tibiofemoral compartment joint space. Overall moderate osteo arthritis. Small joint effusion, possibly with poorly peripherally calcified joint body measuring william roximately 2 cm. There are no acute fractures identified. No radiopaque foreign bodies identified. IMPRESSION: 1. Moderate left knee osteoarthritis. 2. Small to moderate-sized effusion. 3. Possible joint body. Reviewed, dictated and finalized at location A.
== END 2021-05-17 08:54 | disposition home or self-care (01) ==
LOC: ANHIMG 08:59
PROVIDERS: PCP Family Medicine; Visit Provider Family Medicine
DX: S89.92XA Unspecified injury of left lower leg, initial encounter (principal); M17.12 Unilateral primary osteoarthritis, left knee; M25.462 Effusion, left knee
CPT/HCPCS: 73562

== ENCOUNTER 2021-06-20 10:54 | Emergency (ER) | payer OTHER, SELFPAY ==
--- NOTE | ~2021-06-20 | US_ITS ---
EXAMINATION: US venous doppler [facility] EXAM DATE: 06/20/2021 12:41 INDICATION: Left leg pain and swelling. TECHNIQUE: Multiple grayscale, color flow and Doppler images of the left lower extremity deep venous system were obtained and reviewed. Comparison is made to prior examination from 08/23/2020. FINDINGS: The left common femoral, femoral and profunda veins demonstrate normal color flow, respirat ory variation, augmentation and compressibility. Compressibility, color flow confirmed within the le ft popliteal, posterior tibial, peroneal, and greater saphenous veins. IMPRESSION: 1. No left lower extremity deep venous thrombosis. Reviewed, dictated and finalized at location A.
[2021-06-20 11:47] VITALS: BP 152/103; PULSE 85; RESP 18; TEMP 36.6; O2SAT 96
--- NOTE | 2021-06-20 12:47 | ED.GENADULT ---
HPI - General Adult General Chief complaint: Extremity Injury, Lower Stated complaint: left leg, possible blood clot Time Seen by Provider: 06/20/21 12:27 Source: patient and family Mode of arrival: ambulatory Limitations: no limitations History of Present Illness HPI narrative: Patient complaining of pain and tenderness at the left calf muscle started couple days ago. Few days ago patient had left knee pain, nontraumatic, start using knee brace subsequently developed pain at the back of left leg. Patient is telling me that was warm and hot yesterday but not today. Patient denies respiratory symptoms or any trauma. Related Data Home Medications Medication Instructions Recorded Confirmed Adults Multivitamin 1 tablet PO DAILY 01/10/20 07/07/20 Anoro Ellipta 1 inh INHALATION DAILY 01/10/20 07/07/20 aspirin [Aspir-81] 81 mg PO BID 01/10/20 07/07/20 bupropion HCl 75 mg PO BID 01/10/20 07/07/20 calcium polycarbophil [FiberCon] 1,250 mg PO BID 01/10/20 07/07/20 ergocalciferol (vitamin D2) 1,250 mcg PO WEEKLY 01/10/20 07/07/20 [Vitamin D2] flaxseed oil 1,000 mg PO DAILY 01/10/20 07/07/20 fluoxetine 20 mg PO DAILY 01/10/20 07/07/20 gabapentin 300 mg PO BID 01/10/20 07/07/20 hydrocodone-acetaminophen 1 tablet PO Q8H 01/10/20 07/07/20 lisinopril 5 mg PO DAILY 01/10/20 07/07/20 loratadine 10 mg PO DAILY 01/10/20 07/07/20 potassium chloride 20 meq PO HS 01/10/20 07/07/20 pravastatin 40 mg PO HS 01/10/20 07/07/20 ropinirole [Requip XL] 4 mg PO HS 01/10/20 07/07/20 dexamethasone 4 mg PO BID 05/06/20 07/07/20 folic acid 1 mg PO DAILY 05/06/20 07/07/20 ondansetron HCl 4 mg PO Q6H 05/26/20 07/07/20 Allergies Allergy/AdvReac Type Severity Reaction Status Date / Time nickel Allergy Unknown Rash, Verified 06/20/21 12:07 ITCHING Review of Systems Review of Systems: CONSTITUTIONAL: Denies fever, chills, or sweats. EYES: Denies visual changes, redness, or discharge. ENT: Denies rhinorrhea, congestion, sore throat, or otalgia. CARDIOVASCULAR: Denies chest pain, palpitations, or edema. RESPIRATORY: Denies cough or dyspnea. GASTROINTESTINAL: Denies abdominal pain, nausea, vomiting, or diarrhea. GENITOURINARY: Denies dysuria or hematuria. SKIN: Denies rash or itching. MUSCULOSKELETAL: Denies back pain, joint pain, or myalgia. NEUROLOGIC: Denies headache, numbness, or weakness. PSYCHIATRIC: Denies anxiety or depression. [facility] Past Medical History Medical History COPD (chronic obstructive pulmonary disease) Depression with anxiety Diastolic dysfunction Echocardiogram November 27, 2019 showed normal left ventricular systolic size and function with an ejection fraction of 65 to 70%, mild increase in left ventricular wall thickness, left ventricular diastolic dysfunction grade 1, and mild aortic valve stenosis with a valve area of 1.6 centimeters squared. GERD (gastroesophageal reflux disease) Hyperlipidemia Hypertension Obstructive sleep apnea Intolerant to CPAP. Perforated gastric ulcer With intra-abdominal abscess in January 2018, status post hemigastrectomy with Billroth-I gastroduodenostomy. Primary adenocarcinoma of lower lobe of left lung Status partial left lower lobectomy November 2019 at [facility] in [place]. She is to start chemotherapy per Dr. Rodriguez in the near future. Restless leg syndrome Type 2 diabetes mellitus with peripheral neuropathy Hemoglobin A1c was 6.1% in January 2019. Vitamin D deficiency Surgical History Surgical History History of Billroth I operation Ghassan gastrectomy with Billroth 1 gastroduodenostomy for large perforated ulcer in the posterior greater curvature on February 19, 2018, per Dr. Jose Ramon June with subsequent closure of abdominal wound dehiscence February 27, 2018. History of laparoscopic cholecystectomy History of tonsillectomy History of tubal ligation Status post partial lobectomy of lung Robotic assisted le
[2021-06-20 13:20] VITALS: BP 139/99; PULSE 89; RESP 20; O2SAT 97
== END 2021-06-20 13:21 | disposition home or self-care (01) ==
PROVIDERS: Emergency Provider Emergency Medicine; PCP Family Medicine
DX: M25.562 Pain in left knee (principal); J44.9 Chronic obstructive pulmonary disease, unspecified; K21.9 Gastro-esophageal reflux disease without esophagitis; E78.5 Hyperlipidemia, unspecified; I10 Essential (primary) hypertension; G47.33 Obstructive sleep apnea (adult) (pediatric); E11.42 Type 2 diabetes mellitus with diabetic polyneuropathy; E55.9 Vitamin D deficiency, unspecified; Z90.2 Acquired absence of lung [part of]; Z87.891 Personal history of nicotine dependence; Z79.82 Long term (current) use of aspirin; Z85.118 Personal history of other malignant neoplasm of bronchus and lung; F41.8 Other specified anxiety disorders
CPT/HCPCS: 93971; 99284

== ENCOUNTER 2021-06-27 06:42 | Outpatient (CLI) | payer MEDICARE, SELFPAY ==
--- NOTE | ~2021-06-27 | CT_ITS ---
EXAMINATION: CT diagnostic chest w con EXAM DATE: 06/27/2021 07:23 INDICATION: NSCC of the left lung. TECHNIQUE: Spiral CT of the chest following intravenous injection of 75 mL Omnipaque 350. Axial, cor onal and sagittal images of the chest were reviewed. Coronal maximum intensity pixel images of chest reviewed. The dose-length product (DLP) for this examination was 952.17 mGy-cm. The exposure was t ailored according to patient size (auto mA exposure control), and iterative reconstruction (ASIR) was used as additional dose reduction technique. Comparison is made to prior examination from 02/28/2021. FINDINGS: Mildly dilated ascending aorta at 5.0 cm unchanged. There are surgical changes from partia l left pneumonectomy. Right lower lobe calcified granuloma. Left upper lobe nodule previously describ ed has decreased in size, now measures 4 mm, on axial image 43, consistent with postinfectious residu a. Several other subsolid subcentimeter nodules unchanged. There are no pleural or pericardial effus ions. Tracheobronchial tree is patent. There is no mediastinal, hilar or axillary lymphadenopathy . There is no pneumothorax. Heart normal in size. There is mild emphysema. There is moderate marisabel nary arterial calcification, arterial sclerosis. There is hepatic steatosis. There is thoracic spon dylosis without osteoblastic or osteolytic lesions identified. IMPRESSION: 1. Stable post infectious and postsurgical changes. 2. Ascending aortic 5 cm aneurysm. 3. Mild emphysema. 4. Hepatic steatosis. Reviewed, dictated and finalized at location A.
[2021-06-27 07:20] LABS: Estimated Glomerular Filt Rate > 60
== END 2021-06-27 06:43 | disposition home or self-care (01) ==
LOC: ANHIMG 06:45
PROVIDERS: PCP Family Medicine; Visit Provider Internal Medicine Hematology & Oncology
DX: C34.92 Malignant neoplasm of unspecified part of left bronchus or lung (principal); Z98.890 Other specified postprocedural states; I71.2 Thoracic aortic aneurysm, without rupture; J43.9 Emphysema, unspecified; K76.0 Fatty (change of) liver, not elsewhere classified
CPT/HCPCS: 71260; Q9967

== ENCOUNTER 2021-07-14 02:41 | Day surgery (SDC) | payer OTHER, SELFPAY ==
[2021-07-06 08:44] VITALS: BMI 44.1
[2021-07-14 11:00] VITALS: BP 141/86; PULSE 81; RESP 18; TEMP 36.7; O2SAT 99
--- NOTE | 2021-07-14 12:00 | PM.IMHP ---
H&P: HPI History of Present Illness Date/Time: 07/14/21 12:00 Pt present for VAD removal s/p treatment of L lung cancer. Pt had RIJ VAD placed in 02/10. Pt reports no issues c VAD. Chief Complaint: L lung cancer Review of Systems Review of Systems: All systems reviewed & are unremarkable except as noted in HPI and below PMFSH Past Medical History Medical History COPD (chronic obstructive pulmonary disease) Depression with anxiety Diastolic dysfunction Echocardiogram November 27, 2019 showed normal left ventricular systolic size and function with an ejection fraction of 65 to 70%, mild increase in left ventricular wall thickness, left ventricular diastolic dysfunction grade 1, and mild aortic valve stenosis with a valve area of 1.6 centimeters squared. GERD (gastroesophageal reflux disease) Hyperlipidemia Hypertension Obstructive sleep apnea Intolerant to CPAP. Perforated gastric ulcer With intra-abdominal abscess in January 2018, status post hemigastrectomy with Billroth-I gastroduodenostomy. Primary adenocarcinoma of lower lobe of left lung Status partial left lower lobectomy November 2019 at [facility] in [place]. She is to start chemotherapy per Dr. Rodriguez in the near future. Restless leg syndrome Type 2 diabetes mellitus with peripheral neuropathy Hemoglobin A1c was 6.1% in January 2019. Vitamin D deficiency Surgical History Surgical History History of Billroth I operation Ghassan gastrectomy with Billroth 1 gastroduodenostomy for large perforated ulcer in the posterior greater curvature on February 19, 2018, per Dr. Jose Ramon June with subsequent closure of abdominal wound dehiscence February 27, 2018. History of laparoscopic cholecystectomy History of tonsillectomy History of tubal ligation Status post partial lobectomy of lung Robotic assisted left lower lobe, done at [facility] in [place] in November 2019. Family History Family History Mother Patient's mother is , Onset Age: 71 History of blood clots Congestive heart failure Diabetes mellitus Hypertension Father Patient's father is , Onset Age: 52 Acute myocardial infarction Sibling History of blood clots Cerebrovascular accident Chronic obstructive pulmonary disease Diabetes mellitus Hypertension Sibling Chronic obstructive pulmonary disease Diabetes mellitus Other Family history of arthritis Social History Social History Social History: The patient lives in [place] with her . He is nearly 80 years old and suffers from dementia. She designates her daughter, Marysol Reynoso, as her surrogate decision maker and she wishes to be a full code. She is on disability. She smoked up to 2 packs of cigarettes per day for at least 50 years and quit December 04, 2019 at 17:00. No alcohol or drug abuse. Smoking packs per day: 3.5 Smoking cigarettes per day: 70.0 Years smoked: 50 Smoking pack-years: 175.00 Smoking status: Former smoker Smoking end date: 12/04/19 Alcohol intake: current Alcohol use details: RARE - 1 EVERY FEW MONTHS Substance use: never Substance use type: does not use Living arrangements: with family Additional living arrangements comments: BROTHER AND GRANDCHILD Gender identity (if verbalized by the patient): Female Spiritual care concerns: No Agree to blood products: Yes Meds Home Medications and Allergies Home Medications Medication Instructions Recorded Confirmed Type aspirin [Aspir-81] 81 mg PO BID 01/10/20 07/14/21 History ergocalciferol (vitamin D2) 1,250 mcg PO WEEKLY 01/10/20 07/14/21 History [Vitamin D2] hydrocodone-acetaminophen 1 tablet PO Q8H 01/10/20 07/14/21 History furosemide 20 mg PO DAILY 07/06/21 07/14/21 History A
--- NOTE | 2021-07-14 12:41 | WPDHPUPDATE1 ---
History and Physical Update Update Date/Time: 07/14/21 12:41 History and Physical has been reviewed, including an updated exam of the patient. There are NO changes in the patient's condition. Risks, benefits, and alternatives have been discussed and questions answered. Patient agrees to proceed with procedure.
[2021-07-14 12:50] VITALS: BP 127/71; PULSE 62; RESP 16; O2SAT 94
[2021-07-14 13:00] VITALS: BP 144/85; PULSE 67; RESP 16; O2SAT 97
[2021-07-14] MEDS: BUPIVACAINE HCL 0.5% PF 30 ML VIAL INFILTRATE (13:01)
[2021-07-14 13:12] VITALS: BP 135/60; PULSE 70; RESP 18; O2SAT 95
--- NOTE | 2021-07-14 13:27 | P.OP_ITS ---
Procedure Note - Detailed Date of Procedure 07/14/21 Pre-op Diagnosis lung cancer Post-op Diagnosis same Procedure Performed removal RIJ venous access device Surgeon Adriana Reese MD Anesthesia local Indications 61 y/o F s/p treatment lung cancer presenting for VAD removal. Pt had RIJ VAD placed in 02/10. Findings RIJ VAD Description of Procedure The patient was taken to the operating room and placed in the supine position. The patient was then prepped and draped in the normal sterile fashion. A time- out was then done to verify the patient's identity, as well as the procedure being performed. I began by localizing the area of the previously placed port in the right chest. After the area was adequately anesthetized, I made an incision through the previous incision to gain access to the port in the s ubcutaneous tissue. I was then able to identify the port and using dissection with the Bovie cautery, I was able to free the reservoir from the subcutaneous pocket. The reservoir was being held in by 2 sutures and these were subsequently cut. I was then able to remove the reservoir from the pocket. I then removed the catheter from the right internal jugular vein in full. I then held pressure at the level the right internal jugular vein for approximately 5 minutes. Hemostasis was noted and I irrigated the pocket. I then closed the subcutaneous tissue with 3-0 Vicryl suture. The skin was closed with 4-0 Monocryl subcuticular suture. Dermabond was placed on the wound. The patient tolerated the procedure well and was alert and awake in the operating room postoperative. The patient will be sent to the recovery room in stable condition. Estimated Blood Loss 5 Drains No Packing No Pathology none sent Complications No immediate complications Condition stable Disposition PACU
== END 2021-07-14 13:47 | disposition home or self-care (01) ==
PROVIDERS: PCP Family Medicine; Visit Provider Surgery
PROC: (CPT 36589; principal; 2021-07-14 12:45)
DX: Z45.2 Encounter for adjustment and management of vascular access device (principal); Z85.118 Personal history of other malignant neoplasm of bronchus and lung; J44.9 Chronic obstructive pulmonary disease, unspecified; F41.9 Anxiety disorder, unspecified; I11.9 Hypertensive heart disease without heart failure; E78.5 Hyperlipidemia, unspecified; K21.9 Gastro-esophageal reflux disease without esophagitis; G47.33 Obstructive sleep apnea (adult) (pediatric); G25.81 Restless legs syndrome; E11.42 Type 2 diabetes mellitus with diabetic polyneuropathy; E55.9 Vitamin D deficiency, unspecified; F03.90 Unspecified dementia, unspecified severity, without behavioral disturbance, psychotic disturbance, mood disturbance, and anxiety; Z90.2 Acquired absence of lung [part of]; Z87.11 Personal history of peptic ulcer disease; Z98.84 Bariatric surgery status; Z90.3 Acquired absence of stomach [part of]; Z87.891 Personal history of nicotine dependence; Z79.82 Long term (current) use of aspirin
CPT/HCPCS: 36590

== ENCOUNTER 2021-07-25 08:22 | Outpatient (CLI) | payer MEDICARE, SELFPAY ==
--- NOTE | ~2021-07-25 | XR_ITS ---
EXAMINATION: XR knee LT 3V EXAM DATE: 07/25/2021 08:39 INDICATION: multiple joint pain. Left knee pain, no known recent injury. TECHNIQUE: Three projections of the left knee. Comparison is made to prior examination from 05/17/2021 . FINDINGS: There is moderate to severe patellofemoral and medial tibial femoral compartment primary os teoarthritis. There is rounded ossification along the suprapatellar bursa, probably a joint body, fi nding indicated on the lateral projection. Only trace joint fluid. Mild scattered arteriosclerotic di sease. There are no acute fractures identified. IMPRESSION: 1. Moderate to severe left knee osteoarthritis. 2. Probable joint body. Reviewed, dictated and finalized at location A.
== END 2021-07-25 08:23 | disposition home or self-care (01) ==
LOC: ANHIMG 08:27
PROVIDERS: PCP Family Medicine; Visit Provider Family Medicine
DX: M17.12 Unilateral primary osteoarthritis, left knee (principal)
CPT/HCPCS: 73562

== ENCOUNTER 2021-08-19 11:17 | Outpatient (CLI) | payer OTHER, SELFPAY ==
--- NOTE | ~2021-08-19 | XR_ITS ---
XR shoulder RT min 2V 08/19/2021 11:48 Indication: Right shoulder pain Procedure: 4 views right shoulder Comparison: Comparison to multiple prior studies sequentially, with oldest reviewed study dated 11/11. Findings: Osteopenia. There is mild degenerative change of the acromioclavicular joint. No acute frac ture, subluxation or dislocation. There is anatomic alignment. Impression: 1: Mild osteoarthritis of the right acromioclavicular joint. Reviewed, dictated and finalized at location A. BAGGER Impression: 1: Mild osteoarthritis of the right acromioclavicular joint.
== END 2021-08-19 11:18 | disposition home or self-care (01) ==
LOC: ANHIMG 11:25
PROVIDERS: PCP Family Medicine; Visit Provider Family Medicine
DX: M25.511 Pain in right shoulder (principal); M19.011 Primary osteoarthritis, right shoulder
CPT/HCPCS: 73030

== ENCOUNTER 2021-11-26 10:54 | Emergency (ER) | payer OTHER, SELFPAY ==
--- NOTE | ~2021-11-26 | XR_ITS ---
EXAMINATION: XR chest 2V DATE: 11/26/2021 11:36 INDICATION: Dizziness. TECHNIQUE: Frontal and lateral views of the chest were obtained. COMPARISON: Chest single view 01/29/2020, chest CT 06/27/2021 FINDINGS: Sensitivity is decreased by obesity. A calcified right lung nodule and calcified right hansel r lymph nodes are consistent with old granulomatous disease. No pleural effusion or pneumothorax. Car diomegaly is noted. There are prominent paracardial fat pads. IMPRESSION: 1. Cardiomegaly. Reviewed, dictated and finalized at location A. ECTOR SUBASSEMBLY IMPRESSION: 1. Cardiomegaly.
--- NOTE | ~2021-11-26 | CT_ITS ---
EXAMINATION: CT brain wo con DATE: 11/26/2021 11:47 INDICATION: Dizziness. TECHNIQUE: Computed tomography (CT) of the head was performed without intravenous contrast. The mA wa s adjusted according to patient size. Iterative reconstruction technique was employed. The dose-lengt h product was 605.33 mGy-cm. COMPARISON: None FINDINGS: There is no intracranial hemorrhage, acute infarction, or abnormal intracranial mass lesion . The ventricles are normal in size. There is mild mucosal thickening in the paranasal sinuses. The o rbits are normal. There are trace bilateral mastoid effusions. IMPRESSION: 1. Normal brain. Reviewed, dictated and finalized at location A. ATCHER TOW TRUCK IMPRESSION: 1. Normal brain.
[2021-11-26 11:00] VITALS: BP 139/79; PULSE 78; RESP 18; TEMP 36.6; O2SAT 96
--- NOTE | 2021-11-26 11:05 | ECG_ITS ---
Measurements Intervals [place] Rate: 68 P: 44 SC: 188 QRS: 15 QRSD: 85 T: 95 QT: 381 QTc: 408 Interpretive Statements SINUS RHYTHM LOW QRS VOLTAGE IN PRECORDIAL LEADS [QRS DEFLECTION < 1.0 mV IN CHEST LEADS] CANNOT RULE OUT SEPTAL INFARCT, AGE INDETERMINATE NONSPECIFIC T-WAVE ABNORMALITY ABNORMAL ECG COMPARED TO ECG 01/29/2019 12:17:57 T-WAVE ABNORMALITY NOW PRESENT Electronically Signed On 11-26-2021 14:34:48 BANKING ASSISTANT by Hong Quintanilla M.D.
--- NOTE | 2021-11-26 11:20 | ED.DIZZY ---
HPI - Dizziness General Chief Complaint: Dizziness <Kristin Paul PA-C - Last Filed: 11/26/21 13:54> Stated Complaint: dizzy, lightheaded x 3 days <BRODERICK Mg Last Filed: 11/26/21 13:54> Time Seen by Provider: 11/26/21 11:09 <Kristin Paul PA-C - Last Filed: 11/26/21 13:54> Source: patient <BRODERICK Mg Last Filed: 11/26/21 13:54> Mode of arrival: ambulatory <BRODERICK Mg Last Filed: 11/26/21 13:54> Limitations: no limitations <BRODERICK gM Last Filed: 11/26/21 13:54> History of Present Illness HPI Narrative: This is a 61-year-old female that presents to the emergency department for lightheadedness noted over the last couple of days. Reports the other day she felt so lightheaded it caused her to fall to the floor and hit her head. She reports she did not actually lose consciousness. Since then she has had intermittent episodes of lightheadedness. Denies fever, chest pain, shortness of breath, lower extremity edema, numbness, or weakness. <Kristin Paul PA-C - Last Filed: 11/26/21 13:54> Related Data Home Medications: Home Medications Medication Instructions Recorded Confirmed aspirin [Aspir-81] 81 mg PO BID 01/10/20 07/14/21 ergocalciferol (vitamin D2) 1,250 mcg PO WEEKLY 01/10/20 07/14/21 [Vitamin D2] hydrocodone-acetaminophen 1 tablet PO Q8H 01/10/20 07/14/21 furosemide 20 mg PO DAILY 07/06/21 07/14/21 <BRODERICK Mg Last Filed: 11/26/21 13:54> Allergies/Adverse Reactions: Allergies Allergy/AdvReac Type Severity Reaction Status Date / Time nickel Allergy Unknown Rash, Verified 07/14/21 11:55 ITCHING aspirin AdvReac Unknown Verified 11/26/21 11:04 <BRODERICK Mg Last Filed: 11/26/21 13:54> Review of Systems Review of Systems: CONSTITUTIONAL: Denies fever EYES: Denies visual changes CARDIOVASCULAR: Denies chest pain, or edema. RESPIRATORY: Denies dyspnea. GASTROINTESTINAL: Denies vomiting MUSCULOSKELETAL: Denies back pain NEUROLOGIC: Denies headache, numbness, or weakness. <Kristin Paul PA-C - Last Filed: 11/26/21 13:54> All systems reviewed & are unremarkable except as noted in HPI and below <Kristin Paul PA-C - Last Filed: 11/26/21 13:54> [facility] Past Medical History Medical History: Medical History (Updated 11/26/21 @ 13:54 by Kristin Paul PA-C) COPD (chronic obstructive pulmonary disease) Depression with anxiety Diastolic dysfunction Echocardiogram November 27, 2019 showed normal left ventricular systolic size and function with an ejection fraction of 65 to 70%, mild increase in left ventricular wall thickness, left ventricular diastolic dysfunction grade 1, and mild aortic valve stenosis with a valve area of 1.6 centimeters squared. GERD (gastroesophageal reflux disease) Hyperlipidemia Hypertension Obstructive sleep apnea Intolerant to CPAP. Perforated gastric ulcer With intra-abdominal abscess in January 2018, status post hemigastrectomy with Billroth-I gastroduodenostomy. Primary adenocarcinoma of lower lobe of left lung Status partial left lower lobectomy November 2019 at [facility] in [place]. She is to start chemotherapy per Dr. Rodriguez in the near future. Restless leg syndrome Type 2 diabetes mellitus with peripheral neuropathy Hemoglobin A1c was 6.1% in January 2019. Vitamin D deficiency <Kristin Paul PA-C - Last Filed: 11/26/21 13:54> Surgical History Surgical History: Surgical History History of Billroth I operation Ghassan gastrectomy with Billroth 1 gastroduodenostomy for large perforated ulcer in the posterior greater curvature on February 19, 2018, per Dr. Jose Ramon June with subsequent closure of abdominal wound dehiscence February 27, 2018. History of laparoscopic cholecystectomy History of tonsillectomy History of tubal ligation Status post partial lobectomy of lung Robotic assiste
[2021-11-26 11:24] LABS: Basophils Absolute Auto 0.1 K/mm3 (0.0-0.1); Basophils Percent Auto 0.6 % (0.2-1.2); Eosinophils Absolute Auto 0.1 K/mm3 (0-0.3); Eosinophils Percent Auto 1.7 % (0-4.4); Hematocrit 41.8 % (37.0-47.0); Hemoglobin 13.4 g/dL (12.0-15.0); Immature Granulocyte Absolute 0.02 K/mm3 (0.00-0.031); Immature Granulocyte Percent A 0.2 % (0-0.5); Lymphocytes Absolute Auto 2.13 K/mm3 (0.9-3.2); Lymphocytes Percent Auto 26.5 % (18.3-44.2); Mean Corpuscular HGB Conc 32.1 g/dl (32-36); Mean Corpuscular Hemoglobin 28.6 pg (26-34); Mean Corpuscular Volume 89.3 fl (80-100); Mean Platelet Volume 9.6 fl (7.4-10.4); Monocytes Absolute Auto 0.5 K/mm3 (0.1-0.6); Monocytes Percent Auto 6.5 % (2.6-8.5); Neutrophils Absolute Auto 5.2 K/mm3 (1.3-6.7); Neutrophils Percent Auto 64.5 % (45.5-73.1); Platelet Count Result 272 k/mm3 (150-375); Red Blood Count 4.68 M/mm3 (4.2-5.4); Red Cell Distribution Width 14.5 % (11.5-14.5); White Blood Count 8.1 K/mm3 (4.5-10.0)
[2021-11-26 11:34] LABS: Alanine Aminotransferase 14 U/L (4-35); Albumin Level 4.3 g/dL (3.5-5.1); Alkaline Phosphatase 92 U/L (38-126); Anion Gap 7 mmol/L (8-16); Aspartate Amino Transferase 25 U/L (14-36); Bilirubin,Total 0.7 mg/dL (0.2-1.3); Blood Urea Nitrogen 12 mg/dL (7-17); Calcium 8.8 mg/dL (8.4-10.2); Carbon Dioxide 28 mmol/L (22-30); Chloride 102 mmol/L (98-107); Estimated CRCL calculation 86 ml/min; Estimated Glomerular Filt Rate > 60; Glucose 145 mg/dL (65-110); Potassium 3.6 mmol/L (3.4-5.0); Sodium 137 mmol/L (137-145)
[2021-11-26 11:44] VITALS: BP 124/80; PULSE 81
[2021-11-26 11:47] VITALS: BP 128/99; PULSE 82
[2021-11-26 11:48] VITALS: BP 127/100; PULSE 88
[2021-11-26] MEDS: SODIUM CHLORIDE 0.9% IV 500 ML 999 ML IV CONT (12:42)
[2021-11-26 12:52] VITALS: BP 137/76; PULSE 77; RESP 18; O2SAT 99
[2021-11-26 13:02] LABS: Add Urine Microscopic? YES; Appearance Urine Cloudy (Clear); Bacteria Urine 2+ /hpf; Bilirubin Urine Negative (Negative); Blood Urine Negative (Negative); Color Urine Yellow (Yellow); Glucose Urine UA Negative (Negative); Ketones Urine Negative (Negative); Leukocyte Esterase Ur Trace LEU/UL (Negative); Nitrate Urine Positive (Negative); Protein Urine Negative (Negative); Specific Grav Ur 1.016 (1.001-1.035); Squamous Epithelial Cell Urine Few /hpf (Few); Urobilinogen Urine Negative mg/dL (<2.0); WBC Urine 16-20 /hpf
== END 2021-11-26 14:03 | disposition home or self-care (01) ==
PROVIDERS: Physician Assistant; Emergency Provider General Practice; PCP Family Medicine
DX: R42 Dizziness and giddiness (principal); N30.00 Acute cystitis without hematuria; J44.9 Chronic obstructive pulmonary disease, unspecified; E78.5 Hyperlipidemia, unspecified; I10 Essential (primary) hypertension; E11.42 Type 2 diabetes mellitus with diabetic polyneuropathy; K21.9 Gastro-esophageal reflux disease without esophagitis; G25.81 Restless legs syndrome; G47.33 Obstructive sleep apnea (adult) (pediatric); E55.9 Vitamin D deficiency, unspecified; Z85.118 Personal history of other malignant neoplasm of bronchus and lung; Z90.2 Acquired absence of lung [part of]; Z90.3 Acquired absence of stomach [part of]; Z79.82 Long term (current) use of aspirin
CPT/HCPCS: 36415; 70450; 71046; 80053; 81001; 85025; 87077; 87086; 87186; 93005; 96360; 99284; J7040

== ENCOUNTER 2023-04-21 21:58 | Emergency (ER) | payer MEDICARE, MEDICAID, SELFPAY ==
--- NOTE | ~2023-04-21 | XR_ITS ---
XR knee LT min 4V DATE: 04/21/2023 23:23 INDICATION: Left knee pain, swelling following injury at racetrack TECHNIQUE: 4 views COMPARISON: 07/25/2021 left knee FINDINGS: There is osteopenia. Mild suprapatellar knee joint effusion. There is prominent right compartment osteophytosis, particular severe at the medial compartment with virtual [id number] and severe periarticular spurring at the patellofemoral joint. There is mild. Th ere is spurring at the lateral compartment. No recent fracture or dislocation, periosteal reaction or bone destruction is detected. Arterial calcifications. IMPRESSION: Severe tricompartment osteophytosis Mild suprapatellar knee joint effusion Osteopenia Reviewed, dictated and finalized at location A.
[2023-04-21 22:00] VITALS: BP 125/92; PULSE 98; RESP 16; TEMP 36.8; O2SAT 98
--- NOTE | 2023-04-22 02:21 | ED.LOWEXIN ---
HPI - Extremity Injury (Lower) General Chief Complaint: Extremity Injury, Lower Stated Complaint: fall, left knee Time Seen by Provider: 04/22/23 01:12 Source: patient Mode of arrival: ambulatory Limitations: no limitations History of Present Illness HPI Narrative: Patient is a 62-year-old female who presents to the ED with report of left knee pain. Patient reports she tripped on a foam carpeting just prior to arrival and landed directly on her left knee. She did not injure anything else. Denies any head injury or LOC. She states she has had difficulty ambulating due to the pain. She has not taken anything for the pain. Denies any numbness or tingling. Related Data Home Medications Medication Instructions Recorded Confirmed aspirin 81 mg tablet,delayed 81 mg PO BID 01/10/20 07/14/21 release (Aspir-) ergocalciferol (vitamin D2) 1,250 1,250 mcg PO WEEKLY 01/10/20 07/14/21 mcg (50,000 unit) capsule (Vitamin D2) hydrocodone 5 mg-acetaminophen 325 1 tablet PO Q8H 01/10/20 07/14/21 mg tablet furosemide 20 mg tablet 20 mg PO DAILY 07/06/21 07/14/21 Allergies Allergy/AdvReac Type Severity Reaction Status Date / Time nickel Allergy Unknown Rash, Verified 07/14/21 11:55 ITCHING aspirin AdvReac Unknown Verified 11/26/21 11:04 Review of Systems Review of Systems: CONSTITUTIONAL: Denies fever, chills, or sweats. MUSCULOSKELETAL: See HPI. NEUROLOGIC: Denies head injury, LOC, tingling, numbness, or weakness. All systems reviewed & are unremarkable except as noted in HPI and below [facility] Past Medical History Medical History (Updated 04/22/23 @ 03:30 by Jenna Zhu PA-C) COPD (chronic obstructive pulmonary disease) Depression with anxiety Diastolic dysfunction Echocardiogram November 27, 2019 showed normal left ventricular systolic size and function with an ejection fraction of 65 to 70%, mild increase in left ventricular wall thickness, left ventricular diastolic dysfunction grade 1, and mild aortic valve stenosis with a valve area of 1.6 centimeters squared. GERD (gastroesophageal reflux disease) Hyperlipidemia Hypertension Obstructive sleep apnea Intolerant to CPAP. Perforated gastric ulcer With intra-abdominal abscess in January 2018, status post hemigastrectomy with Billroth-I gastroduodenostomy. Primary adenocarcinoma of lower lobe of left lung Status partial left lower lobectomy November 2019 at [facility] in [place]. She is to start chemotherapy per Dr. Rodriguez in the near future. Restless leg syndrome Type 2 diabetes mellitus with peripheral neuropathy Hemoglobin A1c was 6.1% in January 2019. Vitamin D deficiency Surgical History Surgical History History of Billroth I operation Ghassan gastrectomy with Billroth 1 gastroduodenostomy for large perforated ulcer in the posterior greater curvature on February 19, 2018, per Dr. Jose Ramon June with subsequent closure of abdominal wound dehiscence February 27, 2018. History of laparoscopic cholecystectomy History of tonsillectomy History of tubal ligation Status post partial lobectomy of lung Robotic assisted left lower lobe, done at [facility] in [place] in November 2019. Family History Family History Mother Patient's mother is , Onset Age: 71 History of blood clots Congestive heart failure Diabetes mellitus Hypertension Father Patient's father is , Onset Age: 52 Acute myocardial infarction Sibling History of blood clots Cerebrovascular accident Chronic obstructive pulmonary disease Diabetes mellitus Hypertension Sibling Chronic obstructive pulmonary disease Diabetes mellitus Other Family history of arthritis Social History Social History Social History: The patient lives in [place] with her . He is near
[2023-04-22] MEDS: HYDROcodone/acetaminophen (*CRX) 5-325 MG TABLET 1 TAB PO (02:31)
[2023-04-22] MEDS: KETOROLAC (*BKC) 60 MG/2 ML VIAL IM (02:32)
[2023-04-22 03:52] VITALS: BP 98/64; PULSE 72; RESP 15; TEMP 36.6; O2SAT 94
== END 2023-04-22 03:53 | disposition home or self-care (01) ==
PROVIDERS: Emergency Provider Physician Assistant; PCP Family Medicine
DX: S86.912A Strain of unspecified muscle(s) and tendon(s) at lower leg level, left leg, initial encounter (principal); M25.462 Effusion, left knee; I10 Essential (primary) hypertension; J44.9 Chronic obstructive pulmonary disease, unspecified; E78.5 Hyperlipidemia, unspecified; E11.42 Type 2 diabetes mellitus with diabetic polyneuropathy; E55.9 Vitamin D deficiency, unspecified; G25.81 Restless legs syndrome; G47.33 Obstructive sleep apnea (adult) (pediatric); K21.9 Gastro-esophageal reflux disease without esophagitis; Z85.118 Personal history of other malignant neoplasm of bronchus and lung; Z87.891 Personal history of nicotine dependence; Z90.2 Acquired absence of lung [part of]; Z90.49 Acquired absence of other specified parts of digestive tract; Z90.3 Acquired absence of stomach [part of]; Z79.82 Long term (current) use of aspirin; M17.12 Unilateral primary osteoarthritis, left knee; M85.88 Other specified disorders of bone density and structure, other site; W18.09XA Striking against other object with subsequent fall, initial encounter
CPT/HCPCS: 73564; 96372; 99283; A9270; J1885

== ENCOUNTER 2023-06-19 17:13 | Emergency (ER) | payer MEDICARE, MEDICAID, SELFPAY ==
--- NOTE | ~2023-06-19 | XR_ITS ---
EXAMINATION: XR chest 2V Exam Date/Time: 06/19/2023 17:55 CDT HISTORY: SOB Comparison: 11/26/2021. RESULT: Lines, tubes, and devices: None. Lungs and pleura: Hazy opacity in the mid and lower right lung with preservation of the right heart border. Senescent change. Granulomatous calcifications Cardiomediastinal silhouette: Stable. Other: No acute osseous or upper abdominal finding. IMPRESSION: Pulmonary opacities concerning for pneumonia, possibly involving lateral portions of the right middle lobe. Reviewed, dictated and finalized at location K. IMPRESSION: Pulmonary opacities concerning for pneumonia, possibly involving lateral portio ns of the right middle lobe.
[2023-06-19 17:16] VITALS: BP 128/90; PULSE 110; RESP 18; TEMP 36.6; O2SAT 96
--- NOTE | 2023-06-19 17:19 | ECG_ITS ---
Measurements Intervals [place] Rate: 105 P: 68 NE: 191 QRS: 14 QRSD: 84 T: 77 QT: 326 QTc: 431 Interpretive Statements SINUS TACHYCARDIA LOW QRS VOLTAGE IN PRECORDIAL LEADS CANNOT RULE OUT SEPTAL INFARCT, AGE INDETERMINATE BORDERLINE ST-T WAVE ABNORMALITY- HIGH LATERAL LEADS ABNORMAL ECG COMPARED TO ECG 11/26/2021 11:21:33 SINUS TACHYCARDIA NOW PRESENT Electronically Signed On 06-19-2023 20:14:08 CDT by Ramon Laguna D.O.
[2023-06-19 18:34] LABS: Basophils Absolute Auto 0.1 K/mm3 (0.0-0.1); Basophils Percent Auto 0.6 % (0.2-1.2); Eosinophils Absolute Auto 0.1 K/mm3 (0-0.3); Eosinophils Percent Auto 1.3 % (0-4.4); Hematocrit 41.2 % (37.0-47.0); Hemoglobin 13.1 g/dL (12.0-15.0); Immature Granulocyte Absolute 0.05 K/mm3 (0.00-0.031); Immature Granulocyte Percent A 0.5 % (0-0.5); Lymphocytes Absolute Auto 1.63 K/mm3 (0.9-3.2); Lymphocytes Percent Auto 15.9 % (18.3-44.2); Mean Corpuscular HGB Conc 31.8 g/dl (32-36); Mean Corpuscular Hemoglobin 27.5 pg (26-34); Mean Corpuscular Volume 86.4 fl (80-100); Mean Platelet Volume 9.7 fl (7.4-10.4); Monocytes Absolute Auto 0.8 K/mm3 (0.1-0.6); Monocytes Percent Auto 7.4 % (2.6-8.5); Neutrophils Absolute Auto 7.6 K/mm3 (1.3-6.7); Neutrophils Percent Auto 74.3 % (45.5-73.1); Platelet Count Result 315 k/mm3 (150-375); Red Blood Count 4.77 M/mm3 (4.2-5.4); Red Cell Distribution Width 14.6 % (11.5-14.5); White Blood Count 10.2 K/mm3 (4.5-10.0)
[2023-06-19 18:42] LABS: Alanine Aminotransferase 22 U/L (6-35); Albumin Level 4.2 g/dL (3.5-5.1); Alkaline Phosphatase 120 U/L (38-126); Anion Gap 9 mmol/L (8-16); Aspartate Amino Transferase 35 U/L (14-36); Bilirubin,Total 1.5 mg/dL (0.2-1.3); Blood Urea Nitrogen 7 mg/dL (7-17); Calcium 9.1 mg/dL (8.4-10.2); Carbon Dioxide 31 mmol/L (22-30); Chloride 94 mmol/L (98-107); Estimated CRCL calculation 93 ml/min; Estimated Glomerular Filt Rate > 60; Glucose 319 mg/dL (65-110); Potassium 3.1 mmol/L (3.4-5.0); Sodium 134 mmol/L (137-145)
== END 2023-06-19 21:47 | disposition left against medical advice (07) ==
LOC: ANHED 21:33
PROVIDERS: Emergency Provider Emergency Medicine; PCP Family Medicine
DX: R06.02 Shortness of breath (principal); R91.8 Other nonspecific abnormal finding of lung field; Z53.21 Procedure and treatment not carried out due to patient leaving prior to being seen by health care provider
CPT/HCPCS: 36415; 71046; 80053; 85025; 93005; 99199

== ENCOUNTER 2023-06-20 07:44 | Emergency (ER) | payer MEDICARE, MEDICAID, SELFPAY ==
--- NOTE | ~2023-06-20 | XR_ITS ---
EXAMINATION: XR knee LT 3V DATE: 06/20/2023 08:22 INDICATION: Left knee pain and swelling. TECHNIQUE: 3 views of left knee were obtained. COMPARISON: Left knee radiographs 04/21/2023 FINDINGS: Bone alignment is normal. No fracture. There is severe osteoarthritis of medial and patello femoral compartments and mild osteoarthritis of lateral compartment. There is a loose body in suprapa tellar bursa. No knee joint effusion. There is a loose body in a Taylor's cyst. IMPRESSION: 1. Severe left knee osteoarthritis with loose bodies. Reviewed, dictated and finalized at location E.
--- NOTE | ~2023-06-20 | US_ITS ---
EXAMINATION: US venous doppler [facility] DATE: 06/20/2023 08:40 INDICATION: Left lower limb pain TECHNIQUE: Grayscale ultrasound images without and with compression and Doppler ultrasound images of the left lower extremity veins were obtained. COMPARISON: 06/20/2021 FINDINGS: The visualized portions of left common femoral vein, profunda (deep) femoral vein, femoral vein, popl iteal vein, peroneal veins, posterior tibial veins, gastrocnemius vein and greater saphenous vein out flow are patent. IMPRESSION: 1. No deep venous thrombosis in the left lower limb. Reviewed, dictated and finalized at location A.
[2023-06-20 07:50] VITALS: BP 138/91; PULSE 100; RESP 20; TEMP 37.1; O2SAT 94
--- NOTE | 2023-06-20 07:58 | ED.EXTPRO ---
HPI - Extremity Problem General Chief complaint: Extremity Problem,Nontraumatic Stated complaint: possible blood clot left leg Time Seen by Provider: 06/20/23 07:49 History of Present Illness HPI Narrative: Patient is a 63-year-old female who presents ER with pain behind her left calf and knee. Ongoing x1 week. Worse with walking. Better with rest. Has history of restless leg syndrome and takes ropinirole. No swelling or redness. No known trauma. No chest pain or shortness of breath. No hemoptysis. No history of DVT in the past. She reports she is concerned for DVT today. She came to the ER yesterday and had blood work performed. It was unremarkable with the exception of elevated blood sugar. Patient reports she is diabetic but she takes no medications at home because she does not want to be on pills however she will take her ropinirole. Related Data Home Medications Medication Instructions Recorded Confirmed aspirin 81 mg tablet,delayed 81 mg PO BID 01/10/20 07/14/21 release (Aspir-) ergocalciferol (vitamin D2) 1,250 1,250 mcg PO WEEKLY 01/10/20 07/14/21 mcg (50,000 unit) capsule (Vitamin D2) hydrocodone 5 mg-acetaminophen 325 1 tablet PO Q8H 01/10/20 07/14/21 mg tablet furosemide 20 mg tablet 20 mg PO DAILY 07/06/21 07/14/21 Allergies Allergy/AdvReac Type Severity Reaction Status Date / Time nickel Allergy Unknown Rash, Verified 06/19/23 17:14 ITCHING aspirin AdvReac Unknown Verified 06/19/23 17:14 Review of Systems Review of Systems: All systems reviewed & are unremarkable except as noted in HPI and below Constitutional: Constitutional: Denies chills, Denies fatigue and Denies fever(s) ENT: Denies nasal congestion and Denies sore throat Cardiovascular: Cardiovascular: Denies chest pain, Denies rapid heart rate and Denies radiating jaw, neck or arm pain Respiratory: Respiratory: Denies cough, Denies dyspnea and Denies wheezing Gastrointestinal: Gastrointestinal: Reports no additional gastrointestinal complaints Genitourinary: Genitourinary: Reports no additional female genitourinary complaints Musculoskeletal: Musculoskeletal: Denies arthralgias and Denies joint swelling Comments: Right calf pain PMFSH Past Medical History Medical History (Updated 06/20/23 @ 09:42 by Tushar Mejia MD) COPD (chronic obstructive pulmonary disease) Depression with anxiety Diastolic dysfunction Echocardiogram November 27, 2019 showed normal left ventricular systolic size and function with an ejection fraction of 65 to 70%, mild increase in left ventricular wall thickness, left ventricular diastolic dysfunction grade 1, and mild aortic valve stenosis with a valve area of 1.6 centimeters squared. GERD (gastroesophageal reflux disease) Hyperlipidemia Hypertension Obstructive sleep apnea Intolerant to CPAP. Perforated gastric ulcer With intra-abdominal abscess in January 2018, status post hemigastrectomy with Billroth-I gastroduodenostomy. Primary adenocarcinoma of lower lobe of left lung Status partial left lower lobectomy November 2019 at [facility] in [place]. She is to start chemotherapy per Dr. Rodriguez in the near future. Restless leg syndrome Type 2 diabetes mellitus with peripheral neuropathy Hemoglobin A1c was 6.1% in January 2019. Vitamin D deficiency Surgical History Surgical History History of Billroth I operation Ghassan gastrectomy with Billroth 1 gastroduodenostomy for large perforated ulcer in the posterior greater curvature on February 19, 2018, per Dr. Jose Ramon June with subsequent closure of abdominal wound dehiscence February 27, 2018. History of laparoscopic cholecystectomy History of tonsillectomy History of tubal ligation Status post partial lobectomy of lung Robotic assisted left lower lobe, done at [facility] in [place] in November 2019. Family History Family History
[2023-06-20] MEDS: ACETAMINOPHEN 325 MG TABLET 650 MG PO (08:58)
[2023-06-20 09:45] VITALS: BP 108/62; PULSE 100; RESP 16; O2SAT 94
== END 2023-06-20 09:50 | disposition home or self-care (01) ==
PROVIDERS: Emergency Provider Emergency Medicine; PCP Family Medicine
DX: M79.662 Pain in left lower leg (principal); J44.9 Chronic obstructive pulmonary disease, unspecified; E78.5 Hyperlipidemia, unspecified; E11.42 Type 2 diabetes mellitus with diabetic polyneuropathy; E55.9 Vitamin D deficiency, unspecified; G47.33 Obstructive sleep apnea (adult) (pediatric); G25.81 Restless legs syndrome; K21.9 Gastro-esophageal reflux disease without esophagitis; Z85.118 Personal history of other malignant neoplasm of bronchus and lung; Z87.891 Personal history of nicotine dependence; Z90.49 Acquired absence of other specified parts of digestive tract; Z90.2 Acquired absence of lung [part of]; Z79.82 Long term (current) use of aspirin; M17.12 Unilateral primary osteoarthritis, left knee
CPT/HCPCS: 73562; 93971; 99284; A9270

== ENCOUNTER 2024-02-25 16:23 | Emergency (ER) | payer MEDICARE, MEDICAID, SELFPAY ==
--- NOTE | ~2024-02-25 | US_ITS ---
EXAMINATION: US venous doppler [facility] DATE: 02/25/2024 18:18 INDICATION: pain, swelling, r/o dvt . TECHNIQUE: Grayscale images without and with compression and Doppler images of the left lower extremi ty veins were obtained. COMPARISON: 06/20/2023 FINDINGS: Dilated distal femoral, popliteal, and posterior tibial veins with no to minimal flow. Left peroneal veins were not visualized. The left common femoral vein, profunda (deep) femoral vein, proximal femo ral vein, mid femoral vein, and greater saphenous vein are patent. IMPRESSION: Acute DVT involving the distal left femoral, popliteal, and posterior tibial veins. Left peroneal vei ns not visualized. Reviewed, dictated and finalized at location K. IMPRESSION: Acute DVT involving the distal left femoral, popliteal, and posterior tibial ve ins. Left peroneal veins not visualized.
--- NOTE | ~2024-02-25 | CT_ITS ---
EXAMINATION: CTA chest PE protocol DATE: 02/25/2024 20:59 INDICATION: DVT, Tachy TECHNIQUE: Computed tomography angiography (CTA) of the chest was performed with 100 mL Omnipaque-350 intravenous contrast timed to evaluate the pulmonary arteries. Coronal maximum intensity projection 3D-reconstructions were created by the technologist. The dose-length product (DLP) was 989.10 mGy-cm. Automated exposure control and iterative reconstruction technique were employed. COMPARISON: CT chest 06/27/2021. FINDINGS: Lung parenchyma and airways: Scattered tree-in-bud opacities in the bilateral upper lungs. Scattered pulmonary nodules including and 8 mm nodule in the left lower lobe which appears new since the compar luci study. Mild motion artifact in the lungs. Right granuloma/hamartoma. Pleura: Unremarkable. Thoracic inlet, axillae and chest wall: Unremarkable. Thoracic aorta: Dilation of the ascending thoracic aorta, measuring up to 4.9 cm. No dissection. Mediastinum: Mediastinal and bilateral hilar lymphadenopathy. Heart and pericardium: Aortic valve calcification. Small volume pericardial fluid. RV/LV ratio less t velazquez 1. Coronary artery calcifications: Moderate. Upper abdomen: No significant finding. Bones: No acute osseous finding. Pulmonary arteries: Study quality: Adequate. Acute appearing segmental right lower lobe emboli. Subse gmental emboli in all remaining lobes.. IMPRESSION: Acute bilateral pulmonary emboli involving all lobes, moderate clot burden. No evidence of right hear t strain. Scattered tree-in-bud opacities, may represent atypical infection. Multiple pulmonary nodules measuring up to 8 mm in the left lower lobe, recommend follow-up low-dose noncontrast CT of the chest in 3-6 months. Stable ascending thoracic aortic ectasia measuring up to 4.9 cm. Small pericardial effusion. Mediastinal and hilar lymphadenopathy. Reviewed, dictated and finalized at location K. IMPRESSION: Acute bilateral pulmonary emboli involving all lobes, moderate clot burden. No evidence of right heart strain. Scattered tree-in-bud opacities, may represent atypical infection. Multiple pulmonary nodules measuring up to 8 mm in the left lower lobe, recomme nd follow-up low-dose noncontrast CT of the chest in 3-6 months. Stable ascending thoracic aortic ectasia measuring up to 4.9 cm. Small pericardial effusion. Mediastinal and hilar lymphadenopathy.
--- NOTE | ~2024-02-25 | CT_ITS ---
EXAMINATION: CT brain wo con DATE: 02/25/2024 23:18 INDICATION: hx of brain mets . TECHNIQUE: Computed tomography (CT) of the head was performed without intravenous contrast. The mA wa s adjusted according to patient size. Iterative reconstruction technique was employed. The dose-lengt h product was 605.33 mGy-cm. COMPARISON: 11/26/2021. FINDINGS: No acute intracranial hemorrhage or extra-axial fluid collection. No hydrocephalus, mass, or herniation. No acute ischemic infarct. Unremarkable dural venous sinus attenuation. No acute osseous abnormality. Trace bilateral mastoid fluid, the remaining aerated spaces are clear. Mild atrophy and chronic white matter change. Atherosclerotic intracranial calcification. IMPRESSION: No acute intracranial process. Reviewed, dictated and finalized at location K.
[2024-02-25 16:28] VITALS: BP 119/72; PULSE 109; RESP 20; TEMP 36.2; O2SAT 95
[2024-02-25 19:18] VITALS: BP 125/82; PULSE 100; RESP 22; O2SAT 93
--- NOTE | 2024-02-25 19:28 | ECG_ITS ---
[facility] [address] Test Date: 2024-02-25 Pat Name: Nanda Fajardo Department: Room: Gender: F Accounts Payable Payroll Coordinator: : 1960 Requested By: Octavia Pérez Order Number: [id number] Reading MD: Sarah Funes M.D. Measurements Intervals [place] Rate: 103 P: 79 PA: 179 QRS: -24 QRSD: 85 T: 72 QT: 336 QTc: 440 Interpretive Statements SINUS TACHYCARDIA WITH OCCASIONAL VENTRICULAR PREMATURE COMPLEXES WITH OCCASIONAL SUPRAVENTRICULAR PREMATURE COMPLEXES SEPTAL MYOCARDIAL INFARCTION , OF INDETERMINATE AGE [40+ ms Q WAVE IN V1/V2] No previous ECG available for comparison Electronically Signed On 02-26-2024 14:16:57 CDT by Sarah Funes M.D.
[2024-02-25 19:56] LABS: Basophils Absolute Auto 0.1 K/mm3 (0.0-0.1); Basophils Percent Auto 0.4 % (0.2-1.2); Eosinophils Absolute Auto 0.1 K/mm3 (0-0.3); Eosinophils Percent Auto 1.1 % (0-4.4); Hematocrit 39.1 % (37.0-47.0); Hemoglobin 12.7 g/dL (12.0-15.0); Immature Granulocyte Percent A 0.8 % (0-0.5); Lymphocytes Absolute Auto 1.31 K/mm3 (0.9-3.2); Lymphocytes Percent Auto 9.9 % (18.3-44.2); Mean Corpuscular HGB Conc 32.5 g/dl (32-36); Mean Corpuscular Hemoglobin 27.6 pg (26-34); Mean Platelet Volume 10.3 fl (7.4-10.4); Monocytes Percent Auto 7.8 % (2.6-8.5); Neutrophils Absolute Auto 10.7 K/mm3 (1.3-6.7); Platelet Count Result 180 k/mm3 (150-375); Red Cell Distribution Width 15.6 % (11.5-14.5); White Blood Count 13.3 K/mm3 (4.5-10.0)
[2024-02-25 20:07] LABS: Alanine Aminotransferase 12 U/L (6-35); Albumin Level 3.9 g/dL (3.5-5.1); Alkaline Phosphatase 136 U/L (38-126); Anion Gap 7 mmol/L (4-12); Aspartate Amino Transferase 24 U/L (14-36); Bilirubin,Total 1.2 mg/dL (0.2-1.3); Blood Urea Nitrogen 11 mg/dL (7-17); Calcium 8.6 mg/dL (8.4-10.2); Carbon Dioxide 30 mmol/L (22-30); Chloride 97 mmol/L (98-107); Estimated CRCL calculation 62 ml/min; Estimated Glomerular Filt Rate > 60; Glucose 232 mg/dL (65-110); Magnesium 2.1 mg/dL (1.6-2.3); Potassium 3.2 mmol/L (3.4-5.0); Sodium 134 mmol/L (137-145)
--- NOTE | 2024-02-25 20:14 | ED.EXTPRO ---
HPI - Extremity Problem General Chief complaint: Extremity Problem,Nontraumatic Stated complaint: left calf pain Time Seen by Provider: 02/25/24 19:05 History of Present Illness HPI Narrative: Patient is a 63-year-old female who presents to the emergency department this evening complaining of left lower extremity swelling. Patient states that she does have some tenderness to the back of her distal left thigh and popliteal region, she states that the symptoms just started today at of her know where. Patient noticed some swelling and then some pain. Denies any history of blood clot but admits that she was recently diagnosed with breast and lung cancer. Patient has gone through a few sessions of radiation but has not started any chemotherapy yet. She admits that her mom has had a DVT in the past but denies any family history of any blood clotting disorders. Patient also denies any hormonal use, any recent extended car rides/ plane trips. She denies any chest pain or shortness of breath and denies any additional symptoms or concerns at this time. Related Data Home Medications Medication Instructions Recorded Confirmed aspirin 81 mg tablet,delayed 81 mg PO BID 01/10/20 07/14/21 release (Aspir-) ergocalciferol (vitamin D2) 1,250 1,250 mcg PO WEEKLY 01/10/20 07/14/21 mcg (50,000 unit) capsule (Vitamin D2) hydrocodone 5 mg-acetaminophen 325 1 tablet PO Q8H 01/10/20 07/14/21 mg tablet furosemide 20 mg tablet 20 mg PO DAILY 07/06/21 07/14/21 Allergies Allergy/AdvReac Type Severity Reaction Status Date / Time nickel Allergy Unknown Rash, Verified 06/19/23 17:14 ITCHING aspirin AdvReac Unknown Verified 06/19/23 17:14 Review of Systems Review of Systems: All systems are reviewed and are negative unless stated otherwise in the HPI. [facility] Past Medical History Medical History (Updated 02/25/24 @ 22:07 by Octavia Worthington MD) COPD (chronic obstructive pulmonary disease) Depression with anxiety Diastolic dysfunction Echocardiogram November 27, 2019 showed normal left ventricular systolic size and function with an ejection fraction of 65 to 70%, mild increase in left ventricular wall thickness, left ventricular diastolic dysfunction grade 1, and mild aortic valve stenosis with a valve area of 1.6 centimeters squared. GERD (gastroesophageal reflux disease) Hyperlipidemia Hypertension Obstructive sleep apnea Intolerant to CPAP. Perforated gastric ulcer With intra-abdominal abscess in January 2018, status post hemigastrectomy with Billroth-I gastroduodenostomy. Primary adenocarcinoma of lower lobe of left lung Status partial left lower lobectomy November 2019 at [facility] in [place]. She is to start chemotherapy per Dr. Rodriguez in the near future. Restless leg syndrome Type 2 diabetes mellitus with peripheral neuropathy Hemoglobin A1c was 6.1% in January 2019. Vitamin D deficiency Surgical History Surgical History History of Billroth I operation Ghassan gastrectomy with Billroth 1 gastroduodenostomy for large perforated ulcer in the posterior greater curvature on February 19, 2018, per Dr. Jose Ramon June with subsequent closure of abdominal wound dehiscence February 27, 2018. History of laparoscopic cholecystectomy History of tonsillectomy History of tubal ligation Status post partial lobectomy of lung Robotic assisted left lower lobe, done at [facility] in [place] in November 2019. Family History Family History Mother Patient's mother is , Onset Age: 71 History of blood clots Congestive heart failure Diabetes mellitus Hypertension Father Patient's father is , Onset Age: 52 Acute myocardial infarction Sibling History of blood clots Cerebrovascular accident Chronic obstructive pulmonary disease Diabetes mellitus Hypertension Sibling Chronic obstructive p
[2024-02-25 21:24] VITALS: PULSE 110; RESP 22; O2SAT 94
[2024-02-25 21:58] LABS: INR 1.3; Prothrombin Time 16.5 Seconds (11.1-14.7)
[2024-02-25 22:07] LABS: Partial Thromboplastin Time 28.7 Seconds (22.3-36.8)
[2024-02-25 22:14] LABS: Troponin I < 0.012 ng/mL (0.000-0.034)
[2024-02-25 22:28] VITALS: PULSE 107; RESP 20; O2SAT 94
[2024-02-25] MEDS: HEPARIN SOD/D5W 100 UNITS/ML 25,000 UNITS/250 ML BAG 13 UNITS IV CONT (23:53)
[2024-02-25] MEDS: HEPARIN SODIUM 5,000 UNITS/ML VIAL 5500 UNITS IV PUSH (23:53)
[2024-02-26 01:11] VITALS: BP 121/76; PULSE 103; RESP 18; O2SAT 95
== END 2024-02-26 01:14 | disposition short-term general hospital (02) ==
PROVIDERS: Emergency Provider Emergency Medicine; PCP Internal Medicine
DX: I26.99 Other pulmonary embolism without acute cor pulmonale (principal); I82.412 Acute embolism and thrombosis of left femoral vein; I82.432 Acute embolism and thrombosis of left popliteal vein; I82.442 Acute embolism and thrombosis of left tibial vein; J44.9 Chronic obstructive pulmonary disease, unspecified; I11.9 Hypertensive heart disease without heart failure; E78.5 Hyperlipidemia, unspecified; K21.9 Gastro-esophageal reflux disease without esophagitis; G47.33 Obstructive sleep apnea (adult) (pediatric); G25.81 Restless legs syndrome; E11.42 Type 2 diabetes mellitus with diabetic polyneuropathy; E55.9 Vitamin D deficiency, unspecified; Z85.118 Personal history of other malignant neoplasm of bronchus and lung; Z87.891 Personal history of nicotine dependence; Z90.49 Acquired absence of other specified parts of digestive tract; Z90.2 Acquired absence of lung [part of]; Z79.82 Long term (current) use of aspirin; Z79.899 Other long term (current) drug therapy; R91.8 Other nonspecific abnormal finding of lung field; I77.810 Thoracic aortic ectasia
CPT/HCPCS: 36415; 70450; 71275; 80053; 83735; 84484; 85025; 85610; 85730; 93005; 93971; 96365; 99291; J1644; Q9967